=== PATIENT | male | born 1985 | race Caucasian/White ===

== ENCOUNTER 2017-10-03 23:28 | Inpatient (IN) | payer MEDICARE, OTHER ==
[~2017-10-03] VITALS: Ht 193 cm; Wt 112.0 kg
[~2017-10-03 23:28] MED LIST: CLON1TAB4 PO; GABA600T PO; LORA2TAB96 PO; OXYC20TA55 PO; OXYC30TA88 PO
[2017-10-04] MEDS ORDERED: ondansetron/PF 4mg/2ml inj IV ONE (01:00)
[2017-10-04] MEDS ORDERED: normal saline 1000ML IV soln IVB ONE (01:00)
[2017-10-04 02:05] LABS: BASOPHILS # (AUTO) 0.1 X10'3 (0-0.2); BASOPHILS % (AUTO) 0.5 % (0-1); EOSINOPHILS # (AUTO) 0.2 X10'3 (0-0.9); EOSINOPHILS % (AUTO) 1.1 % (0-6); HEMATOCRIT 48.6 % (42.0-52.0); HEMOGLOBIN 16.6 g/dl (14.0-17.9); LYMPHOCYTES # (AUTO) 3.9 X10'3 (1.1-4.8); LYMPHOCYTES % (AUTO) 26.9 % (21-51); MEAN CORPUSCULAR HEMOGLOBIN 33.8 PG (27.0-31.0); MEAN CORPUSCULAR HGB CONC 34.2 % (33.0-36.5); MEAN CORPUSCULAR VOLUME 98.9 FL (78-98); MEAN PLATELET VOLUME 8.5 FL (7.4-10.4); MONOCYTES # (AUTO) 0.8 X10'3 (0-0.9); MONOCYTES % (AUTO) 5.6 % (2-12); NEUTROPHILS # (AUTO) 9.6 X10'3 (1.8-7.7); NEUTROPHILS % (AUTO) 65.9 % (42-75); PLATELET COUNT 132 X10'3 (140-440); RED BLOOD COUNT 4.91 X10'6 (4.70-6.10); RED CELL DISTRIBUTION WIDTH 13.8 % (11.5-14.5); WHITE BLOOD COUNT 14.6 X10'3 (4.5-11.0)
[2017-10-04 02:06] LABS: ALANINE AMINOTRANSFERASE 47 U/L (12-78); ALBUMIN 3.4 G/DL (3.4-5.0); ALBUMIN/GLOBULIN RATIO 0.9 (1.1-1.5); ALKALINE PHOSPHATASE 122 IU/L (46-116); ANION GAP 14 (8-16); ASPARTATE AMINO TRANSFERASE 31 U/L (10-37); BILIRUBIN,TOTAL 0.3 MG/DL (0.1-1.0); BLOOD UREA NITROGEN 15 MG/DL (7-18); BUN/CREATININE RATIO 21.4 (5.4-32.0); CALCIUM 8.2 MG/DL (8.5-10.1); CHLORIDE 106 MMOL/L (99-107); GLUCOSE 110 MG/DL (70-104); LIPASE 1172 U/L (73-393); POTASSIUM 3.4 MMOL/L (3.5-5.1); SODIUM 143 MMOL/L (135-145); TOTAL CARBON DIOXIDE 23.1 MMOL/L (24-32); TOTAL PROTEIN 7.4 G/DL (6.4-8.2); TROPONIN I < 0.04 NG/ML (0.0-0.05); eGFR > 90 ML/MIN
[2017-10-04] MEDS ORDERED: normal saline 1000ml 1,000 ML IV ONE ×2 (02:10)
[2017-10-04] MEDS ORDERED: morphine 4 MG/ML inj SYRINge IV ONE (02:20)
[2017-10-04] MEDS ORDERED: LORazepam 2 mg/ml vial IV ONE ×3 (02:20→10:05)
[2017-10-04] MEDS ORDERED: magnesium 2GM in 50ml NS 50 ML IV ONE (02:48)
[2017-10-04] MEDS ORDERED: potassium 10mEq/100ml NS w/LIDOcaine (10mg/bag) IV ONE (02:50)
[2017-10-04 03:24] LABS: MAGNESIUM 1.9 MG/DL (1.5-2.4)
[2017-10-04] MEDS ORDERED: HYDROmorphone 1 mg/ml syringe IV ONE (05:40)
[2017-10-04 06:24] LABS: URINE AMPHETAMINE SCREEN NEGATIVE (Neg); URINE BARBITUATE SCREEN NEGATIVE (Neg); URINE BENZODIAZEPINES SCREEN NEGATIVE (Neg); URINE CANNABINOID SCREEN NEGATIVE (Neg); URINE COCAINE SCREEN NEGATIVE (Neg); URINE METHADONE SCREEN NEGATIVE (Neg); URINE OPIATE SCREEN POSITIVE (Neg); URINE PHENCYCLIDINE SCREEN NEGATIVE (Neg)
[2017-10-04] MEDS ORDERED: mag hydrox/Alum hydrox/simeth 30ml oral suspension PO PRN (09:05)
[2017-10-04] MEDS ORDERED: acetaminophen 325mg tablet PO PRN (09:05)
[2017-10-04] MEDS ORDERED: magnesium hydroxide 30ml (MOM) UD suspension PO PRN (09:05)
[2017-10-04] MEDS ORDERED: morphine 2 MG/ML inj. syringe IV PRN ×3 (09:05→17:51)
[2017-10-04] MEDS ORDERED: thiamine inj. 100 MG in normal saline 100ml IV soln 100 ML IV ONE (09:05)
[2017-10-04] MEDS: morphine 5 MG/ML injection IV PRN ×2 (09:48→14:08)
[2017-10-04] MEDS: normal saline 1000ml 1,000 ML IV SCH ×3 (09:48→22:24)
[2017-10-04] MEDS: LORazepam 2 mg/ml vial IV PRN ×5 (14:07→23:04)
[2017-10-04] MEDS: ondansetron/PF 4mg/2ml inj IV PRN ×2 (14:22→21:03)
[2017-10-04] MEDS ORDERED: nitroGLYCERIN 0.4mg SUBLingual tab SL PRN (15:35)
[2017-10-04] MEDS ORDERED: aspirin 325mg tablet PO ONE (15:35)
[2017-10-04] MEDS ORDERED: hydrALAZINE 20mg/ml inj. IV ONE (15:35)
[2017-10-04 16:15] VITALS: BP 138/90
[2017-10-04 19:00] VITALS: BP 139/86
[2017-10-04] MEDS: heparin, porcine 5000 units/ml vial SQ SCH (20:27)
[2017-10-04] MEDS ORDERED: CADD PCA waste documentation MC PRN (21:45)
[2017-10-04] MEDS ORDERED: naloxone 0.4 mg/ml inj IV PRN (21:45)
[2017-10-04] MEDS: HYDROmorphone/NS 1 mg/ml CADD 50 ML IV SCH (22:28)
[2017-10-05] VITALS: BP 153/85
[2017-10-05] MEDS: HYDROmorphone/NS 1 mg/ml CADD 50 ML IV SCH ×12 (01:00→23:00)
[2017-10-05] MEDS: LORazepam 2 mg/ml vial IV PRN ×6 (01:05→22:03)
[2017-10-05] MEDS: normal saline 1000ml 1,000 ML IV SCH ×3 (01:05→18:40)
[2017-10-05 06:25] LABS: BASOPHILS % (AUTO) 0.6 % (0-1); EOSINOPHILS # (AUTO) 0.1 X10'3 (0-0.9); EOSINOPHILS % (AUTO) 2.1 % (0-6); HEMATOCRIT 41.8 % (42.0-52.0); HEMOGLOBIN 14.7 g/dl (14.0-17.9); LYMPHOCYTES # (AUTO) 2.5 X10'3 (1.1-4.8); MEAN CORPUSCULAR HEMOGLOBIN 34.6 PG (27.0-31.0); MEAN CORPUSCULAR HGB CONC 35.2 % (33.0-36.5); MEAN CORPUSCULAR VOLUME 98.5 FL (78-98); MEAN PLATELET VOLUME 8.1 FL (7.4-10.4); MONOCYTES # (AUTO) 0.5 X10'3 (0-0.9); MONOCYTES % (AUTO) 8.1 % (2-12); NEUTROPHILS # (AUTO) 3.5 X10'3 (1.8-7.7); NEUTROPHILS % (AUTO) 52.2 % (42-75); PLATELET COUNT 99 X10'3 (140-440); RED BLOOD COUNT 4.25 X10'6 (4.70-6.10); RED CELL DISTRIBUTION WIDTH 13.3 % (11.5-14.5); WHITE BLOOD COUNT 6.7 X10'3 (4.5-11.0)
[2017-10-05 07:00] VITALS: BP 136/96
[2017-10-05 07:23] LABS: ALBUMIN 2.9 G/DL (3.4-5.0); ANION GAP 8 (8-16); BLOOD UREA NITROGEN 8 MG/DL (7-18); BUN/CREATININE RATIO 11.4 (5.4-32.0); CALCIUM 8.3 MG/DL (8.5-10.1); CHLORIDE 103 MMOL/L (99-107); GLUCOSE 87 MG/DL (70-104); LIPASE 269 U/L (73-393); POTASSIUM 3.8 MMOL/L (3.5-5.1); SODIUM 138 MMOL/L (135-145); TOTAL CARBON DIOXIDE 27.3 MMOL/L (24-32); eGFR > 90 ML/MIN
[2017-10-05] MEDS: heparin, porcine 5000 units/ml vial SQ SCH ×2 (08:00→20:00)
[2017-10-05] MEDS: nicotine 14mg patch - 24hr TD SCH (08:14)
[2017-10-05] MEDS: folic acid inj. 2 MG, thiamine inj. 100 MG, MVI, adult No.4 with vit. K 10 ML in dextro... IV SCH ×4 (08:15)
[2017-10-05 11:00] VITALS: BP 135/87
[2017-10-05] MEDS: gabapentin 300mg capsule PO SCH ×2 (13:00→21:31)
[2017-10-05 19:00] VITALS: BP 138/86
[2017-10-06] VITALS: BP 124/91
[2017-10-06] MEDS: LORazepam 2 mg/ml vial IV PRN ×4 (00:21→08:15)
[2017-10-06] MEDS: HYDROmorphone/NS 1 mg/ml CADD 50 ML IV SCH ×12 (01:00→23:00)
[2017-10-06] MEDS: normal saline 1000ml 1,000 ML IV SCH ×3 (01:46→21:39)
[2017-10-06 06:50] LABS: BASOPHILS % (AUTO) 0.5 % (0-1); EOSINOPHILS # (AUTO) 0.2 X10'3 (0-0.9); EOSINOPHILS % (AUTO) 2.9 % (0-6); HEMATOCRIT 40.9 % (42.0-52.0); HEMOGLOBIN 14.1 g/dl (14.0-17.9); LYMPHOCYTES # (AUTO) 2.3 X10'3 (1.1-4.8); LYMPHOCYTES % (AUTO) 36.8 % (21-51); MEAN CORPUSCULAR HEMOGLOBIN 34.7 PG (27.0-31.0); MEAN CORPUSCULAR HGB CONC 34.4 % (33.0-36.5); MEAN CORPUSCULAR VOLUME 100.7 FL (78-98); MEAN PLATELET VOLUME 8.2 FL (7.4-10.4); MONOCYTES # (AUTO) 0.5 X10'3 (0-0.9); NEUTROPHILS # (AUTO) 3.3 X10'3 (1.8-7.7); NEUTROPHILS % (AUTO) 51.8 % (42-75); PLATELET COUNT 97 X10'3 (140-440); RED BLOOD COUNT 4.06 X10'6 (4.70-6.10); RED CELL DISTRIBUTION WIDTH 13.4 % (11.5-14.5); WHITE BLOOD COUNT 6.3 X10'3 (4.5-11.0)
[2017-10-06 07:08] LABS: ALBUMIN 2.7 G/DL (3.4-5.0); ANION GAP 6 (8-16); BLOOD UREA NITROGEN 6 MG/DL (7-18); CALCIUM 8.6 MG/DL (8.5-10.1); CHLORIDE 104 MMOL/L (99-107); GLUCOSE 109 MG/DL (70-104); LIPASE 180 U/L (73-393); POTASSIUM 3.7 MMOL/L (3.5-5.1); SODIUM 139 MMOL/L (135-145); TOTAL CARBON DIOXIDE 29.3 MMOL/L (24-32); eGFR > 90 ML/MIN
[2017-10-06 07:27] VITALS: BP 136/88
[2017-10-06] MEDS: heparin, porcine 5000 units/ml vial SQ SCH ×2 (08:00→08:25)
[2017-10-06] MEDS: nicotine 14mg patch - 24hr TD SCH (08:11)
[2017-10-06] MEDS: gabapentin 300mg capsule PO SCH ×3 (08:11→21:35)
[2017-10-06] MEDS: folic acid inj. 2 MG, thiamine inj. 100 MG, MVI, adult No.4 with vit. K 10 ML in dextro... IV SCH ×4 (08:15)
[2017-10-06 12:00] VITALS: BP 145/66
[2017-10-06] MEDS: LORazepam 1 MG tablet PO PRN ×3 (13:21→21:35)
[2017-10-06 19:20] VITALS: BP 138/78
[2017-10-06 23:00] VITALS: BP 122/84
[2017-10-07] MEDS: HYDROmorphone/NS 1 mg/ml CADD 50 ML IV SCH ×5 (01:00→09:00)
[2017-10-07] MEDS: LORazepam 1 MG tablet PO PRN ×5 (03:35→21:24)
[2017-10-07 06:12] LABS: BASOPHILS % (AUTO) 0.6 % (0-1); EOSINOPHILS # (AUTO) 0.1 X10'3 (0-0.9); EOSINOPHILS % (AUTO) 2.4 % (0-6); HEMATOCRIT 41.2 % (42.0-52.0); HEMOGLOBIN 14.3 g/dl (14.0-17.9); LYMPHOCYTES # (AUTO) 2.3 X10'3 (1.1-4.8); LYMPHOCYTES % (AUTO) 39.9 % (21-51); MEAN CORPUSCULAR HEMOGLOBIN 34.8 PG (27.0-31.0); MEAN CORPUSCULAR HGB CONC 34.7 % (33.0-36.5); MEAN CORPUSCULAR VOLUME 100.2 FL (78-98); MEAN PLATELET VOLUME 8.3 FL (7.4-10.4); MONOCYTES # (AUTO) 0.5 X10'3 (0-0.9); MONOCYTES % (AUTO) 9.3 % (2-12); NEUTROPHILS # (AUTO) 2.8 X10'3 (1.8-7.7); NEUTROPHILS % (AUTO) 47.8 % (42-75); PLATELET COUNT 92 X10'3 (140-440); RED BLOOD COUNT 4.11 X10'6 (4.70-6.10); RED CELL DISTRIBUTION WIDTH 13.5 % (11.5-14.5); WHITE BLOOD COUNT 5.8 X10'3 (4.5-11.0)
[2017-10-07 06:33] LABS: ALBUMIN 2.7 G/DL (3.4-5.0); ANION GAP 5 (8-16); BLOOD UREA NITROGEN 7 MG/DL (7-18); CALCIUM 8.8 MG/DL (8.5-10.1); CHLORIDE 107 MMOL/L (99-107); GLUCOSE 109 MG/DL (70-104); LIPASE 254 U/L (73-393); POTASSIUM 4.6 MMOL/L (3.5-5.1); SODIUM 143 MMOL/L (135-145); TOTAL CARBON DIOXIDE 30.6 MMOL/L (24-32); eGFR 86 ML/MIN
[2017-10-07 06:59] VITALS: BP 135/89
[2017-10-07] MEDS: multivitamins, therapeutics tablet PO SCH (07:45)
[2017-10-07] MEDS: folic acid 1mg tablet PO SCH (07:46)
[2017-10-07] MEDS: gabapentin 300mg capsule PO SCH ×3 (07:46→21:23)
[2017-10-07] MEDS: thiamine 100mg tablet PO SCH (07:46)
[2017-10-07] MEDS: nicotine 14mg patch - 24hr TD SCH (07:47)
[2017-10-07] MEDS: heparin, porcine 5000 units/ml vial SQ SCH ×2 (07:48→20:00)
[2017-10-07] MEDS: normal saline 1000ml 1,000 ML IV SCH (10:28)
[2017-10-07 11:00] VITALS: BP 130/80
[2017-10-07] MEDS ORDERED: morphine 2 MG/ML inj. syringe IV PRN (11:10)
[2017-10-07] MEDS: oxyCODONE IR 5mg (immed. release) tablet PO PRN ×3 (12:47→21:24)
[2017-10-07 20:00] VITALS: BP 112/80
[2017-10-07 23:00] VITALS: BP 114/74
[2017-10-08] MEDS: LORazepam 1 MG tablet PO PRN ×6 (01:31→23:52)
[2017-10-08] MEDS: oxyCODONE IR 5mg (immed. release) tablet PO PRN ×6 (01:31→23:52)
[2017-10-08 06:54] VITALS: BP 124/79
[2017-10-08] MEDS: nicotine 14mg patch - 24hr TD SCH (07:50)
[2017-10-08] MEDS: folic acid 1mg tablet PO SCH (07:50)
[2017-10-08] MEDS: gabapentin 300mg capsule PO SCH ×3 (07:50→20:36)
[2017-10-08] MEDS: multivitamins, therapeutics tablet PO SCH (07:50)
[2017-10-08] MEDS: thiamine 100mg tablet PO SCH (07:50)
[2017-10-08] MEDS: heparin, porcine 5000 units/ml vial SQ SCH ×2 (08:00→20:00)
[2017-10-08 11:00] VITALS: BP 114/75
[2017-10-08 18:00] VITALS: BP 148/89
[2017-10-08 23:00] VITALS: BP 107/65
[2017-10-09] MEDS: oxyCODONE IR 5mg (immed. release) tablet PO PRN ×5 (03:52→20:44)
[2017-10-09] MEDS: LORazepam 1 MG tablet PO PRN ×5 (03:52→20:43)
[2017-10-09] MEDS: heparin, porcine 5000 units/ml vial SQ SCH ×2 (08:00→20:00)
[2017-10-09] MEDS: nicotine 14mg patch - 24hr TD SCH (08:04)
[2017-10-09] MEDS: multivitamins, therapeutics tablet PO SCH (08:05)
[2017-10-09] MEDS: gabapentin 300mg capsule PO SCH ×3 (08:05→20:44)
[2017-10-09] MEDS: folic acid 1mg tablet PO SCH (08:05)
[2017-10-09] MEDS: thiamine 100mg tablet PO SCH (08:06)
[2017-10-09 08:13] VITALS: BP 114/73
[2017-10-09 12:00] VITALS: BP 121/88
[2017-10-09] MEDS ORDERED: LIDOcaine 1% 30ml vial SQ STA (12:15)
[2017-10-09] MEDS ORDERED: triamcinolone acetonide 40mg/ml inj IM ONE (12:15)
[2017-10-09 18:00] VITALS: BP 138/82
[2017-10-09] MEDS ORDERED: diphenhydrAMINE 25mg capsule PO ONE (20:00)
[2017-10-10] VITALS: BP 120/79
[2017-10-10] MEDS: LORazepam 1 MG tablet PO PRN ×6 (00:41→21:24)
[2017-10-10] MEDS: oxyCODONE IR 5mg (immed. release) tablet PO PRN ×6 (00:41→21:25)
[2017-10-10 06:30] VITALS: BP 133/62
[2017-10-10] MEDS: gabapentin 300mg capsule PO SCH ×3 (07:32→20:40)
[2017-10-10] MEDS: thiamine 100mg tablet PO SCH (07:32)
[2017-10-10] MEDS: folic acid 1mg tablet PO SCH (07:32)
[2017-10-10] MEDS: multivitamins, therapeutics tablet PO SCH (07:32)
[2017-10-10] MEDS: heparin, porcine 5000 units/ml vial SQ SCH ×3 (07:32→20:00)
[2017-10-10 11:18] VITALS: BP 111/71
[2017-10-10] MEDS ORDERED: HYDR50CA PO (14:24)
[2017-10-10] MEDS ORDERED: NAPR250T4 PO (14:24)
[2017-10-10 19:30] VITALS: BP 133/81
[2017-10-11] VITALS: BP 127/76
[2017-10-11] MEDS: LORazepam 1 MG tablet PO PRN ×4 (01:14→13:30)
[2017-10-11] MEDS: oxyCODONE IR 5mg (immed. release) tablet PO PRN ×4 (01:14→13:31)
[2017-10-11 07:00] VITALS: BP 123/84
[2017-10-11] MEDS: heparin, porcine 5000 units/ml vial SQ SCH (08:00)
[2017-10-11] MEDS: multivitamins, therapeutics tablet PO SCH (08:53)
[2017-10-11] MEDS: gabapentin 300mg capsule PO SCH ×2 (08:53→13:04)
[2017-10-11] MEDS: thiamine 100mg tablet PO SCH (08:53)
[2017-10-11] MEDS: folic acid 1mg tablet PO SCH (08:54)
[2017-10-11 11:00] VITALS: BP 117/74
== END 2017-10-11 13:58 | DRG 896 ==
LOC: ER 23:28 → ED HOLD 10-04 09:04 → EDBEDREQ 10-04 15:40 → MED 3N 10-04 16:09
PROVIDERS: ADMIT Family Medicine; ATTEND Family Medicine
DX: F10.229 Alcohol dependence with intoxication, unspecified (principal); K85.20 Alcohol induced acute pancreatitis without necrosis or infection; R65.10 Systemic inflammatory response syndrome (SIRS) of non-infectious origin without acute organ dysfunction; F10.239 Alcohol dependence with withdrawal, unspecified; M87.022 Idiopathic aseptic necrosis of left humerus; K86.1 Other chronic pancreatitis; Z89.612 Acquired absence of left leg above knee; E87.6 Hypokalemia; Y90.0 Blood alcohol level of less than 20 mg/100 ml; G40.909 Epilepsy, unspecified, not intractable, without status epilepticus; G89.29 Other chronic pain; M25.512 Pain in left shoulder; Z72.0 Tobacco use; Z90.49 Acquired absence of other specified parts of digestive tract; Z88.1 Allergy status to other antibiotic agents; Z88.2 Allergy status to sulfonamides; Z88.8 Allergy status to other drugs, medicaments and biological substances; Z86.718 Personal history of other venous thrombosis and embolism; Z71.6 Tobacco abuse counseling
CPT/HCPCS: 36415; 73030; 73221; 80048; 80053; 80305; 80320; 83690; 83735; 84484; 85025; 87070; 93005; 97161; 97530; 99285; A4565; A6257; J1170; J1644; J2060; J2270; J2405; J3301; J3411; J3475; J3480; J3490; J7030; J7060; Q0163

== ENCOUNTER 2017-10-21 06:48 | Inpatient (IN) | payer MEDICARE, MEDICAID ==
[2017-10-17 15:58] LABS: BASOPHILS # (AUTO) 0.1 X10'3 (0-0.2); BASOPHILS % (AUTO) 0.6 % (0-1); EOSINOPHILS # (AUTO) 0.2 X10'3 (0-0.9); EOSINOPHILS % (AUTO) 2.8 % (0-6); LYMPHOCYTES # (AUTO) 3.4 X10'3 (1.1-4.8); LYMPHOCYTES % (AUTO) 38.3 % (21-51); MEAN CORPUSCULAR HEMOGLOBIN 34.3 PG (27.0-31.0); MEAN CORPUSCULAR HGB CONC 34.6 % (33.0-36.5); MEAN CORPUSCULAR VOLUME 99.2 FL (78-98); MEAN PLATELET VOLUME 6.9 FL (7.4-10.4); MONOCYTES # (AUTO) 0.7 X10'3 (0-0.9); MONOCYTES % (AUTO) 7.8 % (2-12); NEUTROPHILS # (AUTO) 4.5 X10'3 (1.8-7.7); NEUTROPHILS % (AUTO) 50.5 % (42-75); PRE OP HEMATOCRIT 44.6 % (42.0-52.0); PRE OP HEMOGLOBIN 15.4 g/dL (14.0-17.9); PRE OP PLATELET COUNT 228 X10'3 (140-440); RED CELL DISTRIBUTION WIDTH 13.7 % (11.5-14.5)
[2017-10-17 16:08] LABS: PRE OP INR 0.9 INR; PRE OP PROTIME 9.6 SECONDS (9.0-12.0)
[2017-10-17 16:12] LABS: ALBUMIN 3.8 G/DL (3.4-5.0); ALKALINE PHOSPHATASE 117 IU/L (46-116); BLOOD UREA NITROGEN 15 MG/DL (7-18); CHLORIDE 107 MMOL/L (99-107); CREATININE 0.75 MG/DL (0.60-1.10); LIPASE 432 U/L (73-393); PRE OP ALT 66 U/L (30-65); PRE OP ANION GAP 8 (8-16); PRE OP AST 21 U/L (10-37); PRE OP BILIRUB, TOTAL 0.3 MG/DL (0.0-1.0); PRE OP GLUCOSE 88 MG/DL (70-104); PRE OP POTASSIUM 3.9 MMOL/L (3.4-5.1); PRE OP SODIUM 144 MMOL/L (135-145); TOTAL CARBON DIOXIDE 29.1 MMOL/L (24-32); TOTAL PROTEIN 7.6 G/DL (6.4-8.2); eGFR > 90 ML/MIN
[2017-10-21] VITALS (18 sets, daily range): BP systolic 106–155; BP diastolic 47–120
[~2017-10-21] VITALS: Ht 193 cm; Wt 92.5 kg
[~2017-10-21 06:48] MED LIST changes: -GABA600T PO; +HYDR-565 PO; -LORA2TAB96 PO; -OXYC20TA55 PO; -OXYC30TA88 PO; +PREG300C PO; +SERT100T10 PO; +famotidine 20mg tablet PO ONE; +ringers solution, lacted 1,000 ML IV SCH; +tranexamic acid inj. 900 MG in normal saline 100ml IV soln 91 ML IV ONE
[2017-10-21] MEDS ORDERED: DAPTOmycin 500mg inj IV ONE ×2 (07:38→13:22)
[2017-10-21] MEDS ORDERED: tranexamic acid inj. 907 MG in normal saline 100ml IV soln 90.93 ML IV ONE ×4 (07:45)
[2017-10-21] MEDS ORDERED: LIDOcaine 1% (10mg/ml) 2ml vial ONE (08:09)
[2017-10-21] MEDS ORDERED: tranexamic acid inj. 900 MG in normal saline 100ml IV soln 91 ML IV ONE (09:30)
[2017-10-21] MEDS ORDERED: ketorolac trometh. 30mg/ml inj. ONE (10:03)
[2017-10-21] MEDS ORDERED: ROPIVAcaine 0.5% (5mg/ml) 30ml vial ONE ×2 (10:04→14:17)
[2017-10-21] MEDS ORDERED: vancomycin 1,000mg inj ONE (10:04)
[2017-10-21] MEDS ORDERED: sevoflurane 250ml liquid IH ONE (12:25)
[2017-10-21] MEDS ORDERED: fentaNYL/PF 50MCG/1 ML 2ML syringe ONE ×3 (12:30→14:10)
[2017-10-21] MEDS ORDERED: midazolam 2 mg/2 ml injection ONE (12:31)
[2017-10-21] MEDS ORDERED: propofol inj 20 ML IV ONE (12:47)
[2017-10-21] MEDS ORDERED: LIDOcaine 2% (20mg/ml) 5ml vial ONE (12:47)
[2017-10-21] MEDS ORDERED: dexamethasone sod phosphate 4mg/ml inj. ONE (13:12)
[2017-10-21] MEDS ORDERED: ringers solution, lacted 1,000 ML IV SCH (13:48)
[2017-10-21] MEDS ORDERED: meperidine/PF 50mg/ml syringe IV PRN ×2 (13:50)
[2017-10-21] MEDS ORDERED: morphine 2 MG/ML inj. syringe IV PRN ×2 (13:50)
[2017-10-21] MEDS ORDERED: proCHLORperazine 10 MG/2 ml inj IV PRN (13:50)
[2017-10-21] MEDS ORDERED: ondansetron/PF 4mg/2ml inj IV PRN ×2 (13:50→14:50)
[2017-10-21] MEDS ORDERED: morphine 10mg/ml inj. ONE (14:11)
[2017-10-21] MEDS ORDERED: diphenhydrAMINE 25mg capsule PO PRN ×2 (14:50)
[2017-10-21] MEDS ORDERED: HYDROmorphone 1 mg/ml syringe IV PRN ×2 (14:50)
[2017-10-21] MEDS ORDERED: bisacodyl 10mg suppository rectal RC PRN (14:50)
[2017-10-21] MEDS ORDERED: magnesium hydroxide 30ml (MOM) UD suspension PO PRN (14:50)
[2017-10-21] MEDS ORDERED: oxyCODONE IR 5mg (immed. release) tablet PO PRN ×5 (14:50→19:30)
[2017-10-21] MEDS ORDERED: acetaminophen 325mg tablet PO PRN (14:50)
[2017-10-21] MEDS ORDERED: HYDROcodone/acetaminophen 10/325mg tab PO PRN (14:50)
[2017-10-21] MEDS: meperidine/PF 50mg/ml syringe IV PRN ×4 (15:05→15:35)
[2017-10-21] MEDS ORDERED: ondansetron/PF 4mg/2ml inj ONE (15:09)
[2017-10-21] MEDS: clonazePAM 1mg tablet PO SCH ×2 (16:42→20:10)
[2017-10-21] MEDS ORDERED: HYDROmorphone inj. 0.5 MG/0.5 ML DISP.SYRIN ONE ×2 (17:35→17:36)
[2017-10-21] MEDS: potassium cl 20mEq in 1/2 NS 1,000 ML IV SCH (17:42)
[2017-10-21] MEDS ORDERED: TRANEXAMIC ACID IV ONE (18:27)
[2017-10-21] MEDS ORDERED: NORMAL SALINE IV ONE (18:27)
[2017-10-21] MEDS: morphine 2 MG/ML inj. syringe IV PRN (20:09)
[2017-10-21] MEDS: pregabalin 75mg capsule PO SCH (20:10)
[2017-10-21] MEDS: sennosides 8.6mg tablet PO SCH (20:11)
[2017-10-21] MEDS: acetaminophen 325mg tablet PO SCH (20:12)
[2017-10-21] MEDS: oxyCODONE IR 5mg (immed. release) tablet PO PRN (21:40)
[2017-10-22] MEDS: morphine 2 MG/ML inj. syringe IV PRN ×6 (00:18→21:28)
[2017-10-22 02:00] VITALS: BP 116/81
[2017-10-22] MEDS: acetaminophen 325mg tablet PO SCH ×4 (02:26→21:27)
[2017-10-22] MEDS: oxyCODONE IR 5mg (immed. release) tablet PO PRN ×6 (02:27→23:14)
[2017-10-22] MEDS: potassium cl 20mEq in 1/2 NS 1,000 ML IV SCH (02:28)
[2017-10-22 06:00] VITALS: BP 119/73
[2017-10-22 06:27] LABS: ANION GAP 6 (8-16); CHLORIDE 107 MMOL/L (99-107); SODIUM 140 MMOL/L (135-145); TOTAL CARBON DIOXIDE 26.8 MMOL/L (24-32)
[2017-10-22 06:36] LABS: BASOPHILS % (AUTO) 0.1 % (0-1); EOSINOPHILS % (AUTO) 0 % (0-6); HEMATOCRIT 37.6 % (42.0-52.0); HEMOGLOBIN 13.5 g/dl (14.0-17.9); LYMPHOCYTES # (AUTO) 2.9 X10'3 (1.1-4.8); MEAN CORPUSCULAR HEMOGLOBIN 34.7 PG (27.0-31.0); MEAN CORPUSCULAR HGB CONC 35.8 % (33.0-36.5); MEAN PLATELET VOLUME 7.7 FL (7.4-10.4); NEUTROPHILS # (AUTO) 10.4 X10'3 (1.8-7.7); NEUTROPHILS % (AUTO) 72.9 % (42-75); PLATELET COUNT 211 X10'3 (140-440); RED BLOOD COUNT 3.88 X10'6 (4.70-6.10); RED CELL DISTRIBUTION WIDTH 13.9 % (11.5-14.5); WHITE BLOOD COUNT 14.3 X10'3 (4.5-11.0)
[2017-10-22] MEDS: pregabalin 75mg capsule PO SCH ×2 (07:05→21:28)
[2017-10-22] MEDS: clonazePAM 1mg tablet PO SCH ×4 (07:05→21:27)
[2017-10-22] MEDS: sertraline 50mg tablet PO SCH (07:06)
[2017-10-22] MEDS: aspirin 325mg tablet PO SCH (07:48)
[2017-10-22] MEDS ORDERED: DAPTOmycin inj. 500 MG in normal saline 100ml IV soln 100 ML IV SCH (08:00)
[2017-10-22 14:00] VITALS: BP 128/83
[2017-10-22 18:58] VITALS: BP 139/88
[2017-10-22] MEDS: sennosides 8.6mg tablet PO SCH (21:00)
[2017-10-22 22:39] VITALS: BP 126/79
[2017-10-23] MEDS: morphine 2 MG/ML inj. syringe IV PRN ×6 (01:38→23:07)
[2017-10-23] MEDS: acetaminophen 325mg tablet PO SCH ×3 (01:44→17:29)
[2017-10-23 02:00] VITALS: BP 131/100
[2017-10-23] MEDS: oxyCODONE IR 5mg (immed. release) tablet PO PRN ×5 (03:43→21:05)
[2017-10-23 05:00] VITALS: BP 109/80
[2017-10-23 06:23] LABS: BASOPHILS # (AUTO) 0.1 X10'3 (0-0.2); BASOPHILS % (AUTO) 0.6 % (0-1); EOSINOPHILS # (AUTO) 0.2 X10'3 (0-0.9); EOSINOPHILS % (AUTO) 2.4 % (0-6); HEMATOCRIT 37.8 % (42.0-52.0); HEMOGLOBIN 13.2 g/dl (14.0-17.9); LYMPHOCYTES # (AUTO) 2.9 X10'3 (1.1-4.8); LYMPHOCYTES % (AUTO) 31.9 % (21-51); MEAN CORPUSCULAR HEMOGLOBIN 34.4 PG (27.0-31.0); MEAN CORPUSCULAR HGB CONC 34.9 % (33.0-36.5); MEAN CORPUSCULAR VOLUME 98.6 FL (78-98); MEAN PLATELET VOLUME 7.5 FL (7.4-10.4); MONOCYTES # (AUTO) 0.8 X10'3 (0-0.9); MONOCYTES % (AUTO) 9.1 % (2-12); NEUTROPHILS # (AUTO) 5.1 X10'3 (1.8-7.7); PLATELET COUNT 220 X10'3 (140-440); RED BLOOD COUNT 3.83 X10'6 (4.70-6.10); RED CELL DISTRIBUTION WIDTH 13.8 % (11.5-14.5); WHITE BLOOD COUNT 9.1 X10'3 (4.5-11.0)
[2017-10-23] MEDS ORDERED: ketorolac trometh. 30mg/ml inj. IV SCH (08:00)
[2017-10-23] MEDS: sertraline 50mg tablet PO SCH (08:24)
[2017-10-23] MEDS: clonazePAM 1mg tablet PO SCH ×4 (08:24→21:05)
[2017-10-23] MEDS: aspirin 325mg tablet PO SCH (08:25)
[2017-10-23] MEDS: pregabalin 75mg capsule PO SCH ×2 (08:26→21:05)
[2017-10-23 11:30] VITALS: BP 133/80
[2017-10-23] MEDS ORDERED: acetaminophen 325mg tablet PO PRN (14:50)
[2017-10-23 18:00] VITALS: BP 126/85
[2017-10-23] MEDS: sennosides 8.6mg tablet PO SCH (21:00)
[2017-10-23 22:00] VITALS: BP 124/78
[2017-10-24] MEDS: oxyCODONE IR 5mg (immed. release) tablet PO PRN ×4 (00:50→13:33)
[2017-10-24] MEDS: morphine 2 MG/ML inj. syringe IV PRN ×3 (04:07→12:36)
[2017-10-24 06:31] LABS: BASOPHILS % (AUTO) 0.3 % (0-1); EOSINOPHILS # (AUTO) 0.4 X10'3 (0-0.9); EOSINOPHILS % (AUTO) 4.5 % (0-6); HEMATOCRIT 36.6 % (42.0-52.0); HEMOGLOBIN 12.8 g/dl (14.0-17.9); LYMPHOCYTES # (AUTO) 3.1 X10'3 (1.1-4.8); LYMPHOCYTES % (AUTO) 32.1 % (21-51); MEAN CORPUSCULAR HEMOGLOBIN 34.3 PG (27.0-31.0); MEAN CORPUSCULAR HGB CONC 34.8 % (33.0-36.5); MEAN CORPUSCULAR VOLUME 98.6 FL (78-98); MEAN PLATELET VOLUME 7.8 FL (7.4-10.4); MONOCYTES # (AUTO) 1.1 X10'3 (0-0.9); MONOCYTES % (AUTO) 11.3 % (2-12); NEUTROPHILS % (AUTO) 51.8 % (42-75); PLATELET COUNT 205 X10'3 (140-440); RED BLOOD COUNT 3.72 X10'6 (4.70-6.10); RED CELL DISTRIBUTION WIDTH 13.6 % (11.5-14.5); WHITE BLOOD COUNT 9.7 X10'3 (4.5-11.0)
[2017-10-24 06:54] VITALS: BP 107/68
[2017-10-24] MEDS: aspirin 325mg tablet PO SCH (07:12)
[2017-10-24] MEDS: clonazePAM 1mg tablet PO SCH ×2 (07:13→12:35)
[2017-10-24] MEDS: pregabalin 75mg capsule PO SCH (07:13)
[2017-10-24] MEDS: sertraline 50mg tablet PO SCH (07:13)
== END 2017-10-24 15:47 | DRG 483 ==
LOC: PAS IN 06:48 → EDSTATUS 11:00 → ORTHO 4S 16:15
PROVIDERS: ADMIT Orthopaedic Surgery; ATTEND Orthopaedic Surgery
PROC: 0LS40ZZ Reposition Left Upper Arm Tendon, Open Approach (ICD-10-PCS; 2017-10-21)
PROC: 0RRK0JZ Replacement of Left Shoulder Joint with Synthetic Substitute, Open Approach (ICD-10-PCS; principal; 2017-10-21 12:20)
DX: M87.022 Idiopathic aseptic necrosis of left humerus (principal); K85.90 Acute pancreatitis without necrosis or infection, unspecified; D62 Acute posthemorrhagic anemia; Z89.612 Acquired absence of left leg above knee; F11.20 Opioid dependence, uncomplicated; G54.6 Phantom limb syndrome with pain; M75.22 Bicipital tendinitis, left shoulder; I10 Essential (primary) hypertension; I25.10 Atherosclerotic heart disease of native coronary artery without angina pectoris; F32.9 Major depressive disorder, single episode, unspecified; F41.9 Anxiety disorder, unspecified; G89.29 Other chronic pain; J45.909 Unspecified asthma, uncomplicated; M65.812 Other synovitis and tenosynovitis, left shoulder; Z96.653 Presence of artificial knee joint, bilateral; Z88.6 Allergy status to analgesic agent; Z79.899 Other long term (current) drug therapy
CPT/HCPCS: 36415; 80051; 80053; 83690; 85025; 85610; 85730; 87070; 93005; 97110; 97161; 97530; A4565; A7000; C1713; C1776; J0878; J1100; J1170; J1885; J2001; J2175; J2250; J2270; J2405; J2704; J2795; J3010; J3370; J3490; J7030; J7120

== ENCOUNTER 2017-10-26 17:59 | Inpatient (IN) | payer MEDICARE, MEDICAID ==
[~2017-10-26] VITALS: Ht 193 cm; Wt 99.0 kg
[~2017-10-26 17:59] MED LIST changes: +epiNEPHrine 0.1mg/ml 10ml syringe ONE; +epiNEPHrine 1 mg/ml 30ml MDV ONE; +etomidate 2mg/ml inj. ONE; -famotidine 20mg tablet PO ONE; -ringers solution, lacted 1,000 ML IV SCH; +rocuronium 10mg/ml inj IV ONE; +sod chloride 0.9% 10ml flush syringe IV ONE; -tranexamic acid inj. 900 MG in normal saline 100ml IV soln 91 ML IV ONE
[2017-10-26] MEDS ORDERED: MIDAZolam 5mg/ml 2ml vial IV ONE (18:10)
[2017-10-26] MEDS ORDERED: normal saline 1000ML IV soln IV ONE (18:20)
[2017-10-26] MEDS ORDERED: diphenhydrAMINE 50 mg/ml inj IV ONE (18:30)
[2017-10-26] MEDS ORDERED: famotidine/PF 10 mg/ml inj IV ONE (18:30)
[2017-10-26] MEDS ORDERED: methylPREDNISolone sod succ 125mg/2ml vial IV ONE (18:30)
[2017-10-26 18:34] LABS: BASOPHILS # (AUTO) 0.1 X10'3 (0-0.2); BASOPHILS % (AUTO) 0.4 % (0-1); EOSINOPHILS # (AUTO) 0.9 X10'3 (0-0.9); EOSINOPHILS % (AUTO) 5.3 % (0-6); HEMATOCRIT 42.9 % (42.0-52.0); HEMOGLOBIN 14.5 g/dl (14.0-17.9); LYMPHOCYTES % (AUTO) 41.4 % (21-51); MEAN CORPUSCULAR HEMOGLOBIN 33.8 PG (27.0-31.0); MEAN CORPUSCULAR HGB CONC 33.7 % (33.0-36.5); MEAN CORPUSCULAR VOLUME 100.2 FL (78-98); MONOCYTES # (AUTO) 1.2 X10'3 (0-0.9); MONOCYTES % (AUTO) 7.2 % (2-12); NEUTROPHILS # (AUTO) 7.7 X10'3 (1.8-7.7); NEUTROPHILS % (AUTO) 45.7 % (42-75); PLATELET COUNT 296 X10'3 (140-440); RED BLOOD COUNT 4.28 X10'6 (4.70-6.10); RED CELL DISTRIBUTION WIDTH 13.7 % (11.5-14.5); WHITE BLOOD COUNT 16.9 X10'3 (4.5-11.0)
[2017-10-26 18:46] LABS: INR 0.9 INR; PARTIAL THROMBOPLASTIN TIME 24 SECONDS (22-32); PROTHROMBIN TIME 9.1 SECONDS (9.0-12.0)
[2017-10-26] MEDS ORDERED: midazolam 2 mg/2 ml injection ONE (18:46)
[2017-10-26 19:05] LABS: ABG BASE EXCESS -2.4 mmol/L (-2.0-3.0); ABG HCO3 24.9 mmol/L (22.0-26.0); ABG OXYGEN SATURATION 99.5 % (95-98); ABG PCO2 (T) 53.9 mmHg (35.0-48.0); ABG PH (T) 7.284 (7.350-7.450); ALLEN'S TEST Positive; FCOHb 0.9 % (0.5-1.5); FMetHb 0.4 % (0.3-1.12); FO2Hb 98.2 % (94-100); MINUTE VOLUME 7 L/min; PATIENT TEMPERATURE 37.2; PEEP 5 cm H2O; RESPIRATORY RATE 12 b/min; RESPIRATORY RATE (OBSERVED) 12 b/min; TIDAL VOLUME 500 mL; TOTAL HEMOGLOBIN 13.5 G/dl (14.0-18.0)
[2017-10-26] MEDS: midazolam 100mg in NS 100ml 100 ML IV PRN (19:08)
[2017-10-26] MEDS ORDERED: propofol 1000mg/100ml bottle 100 ML IV ONE (19:26)
[2017-10-26] MEDS ORDERED: magnesium Cl slow-release 64mg tablet PO PRN (20:10)
[2017-10-26] MEDS ORDERED: magnesium 4gm in 100ml NS 100 ML IV PRN (20:10)
[2017-10-26] MEDS ORDERED: potassium Cl 20 mEq SR tablet PO PRN ×2 (20:10)
[2017-10-26] MEDS ORDERED: albuterol 2.5 MG/3 ML nebule NEB PRN (20:10)
[2017-10-26] MEDS ORDERED: magnesium 2GM in 50ml NS 50 ML IV PRN (20:10)
[2017-10-26] MEDS ORDERED: midazolam 100mg in NS 100ml 100 ML IV PRN (20:14)
[2017-10-26] MEDS ORDERED: fentaNYL/PF 50MCG/1 ML 2ML syringe IV PRN (20:15)
[2017-10-26 20:17] LABS: ALANINE AMINOTRANSFERASE 33 U/L (12-78); ALBUMIN 2.6 G/DL (3.4-5.0); ALBUMIN/GLOBULIN RATIO 0.7 (1.1-1.5); ALKALINE PHOSPHATASE 105 IU/L (46-116); ANION GAP 11 (8-16); ASPARTATE AMINO TRANSFERASE 23 U/L (10-37); BILIRUBIN,TOTAL 0.5 MG/DL (0.1-1.0); BLOOD UREA NITROGEN 14 MG/DL (7-18); BUN/CREATININE RATIO 16.7 (5.4-32.0); CALCIUM 7.9 MG/DL (8.5-10.1); CHLORIDE 109 MMOL/L (99-107); CREATININE 0.84 MG/DL (0.60-1.10); GLUCOSE 204 MG/DL (70-104); MAGNESIUM 1.5 MG/DL (1.5-2.4); POTASSIUM 3.4 MMOL/L (3.5-5.1); SODIUM 146 MMOL/L (135-145); TOTAL PROTEIN 6.2 G/DL (6.4-8.2); eGFR > 90 ML/MIN
[2017-10-26] MEDS: pantoprazole 40 MG vial IV SCH (20:24)
[2017-10-26] MEDS: normal saline 1000ml 1,000 ML IV SCH (20:27)
[2017-10-26] MEDS: FENTANYL-0.9 % NACL/PF 100 ML IV PRN (20:43)
[2017-10-26 21:00] VITALS: BP 139/82
[2017-10-26 22:00] VITALS: BP 135/75
[2017-10-26 23:00] VITALS: BP 127/82
[2017-10-26] MEDS ORDERED: sodium chloride 0.45% 1,000 ML IV ONE (23:45)
[2017-10-27] VITALS (24 sets, daily range): BP systolic 92–141; BP diastolic 61–97
[2017-10-27 01:17] LABS: INR 0.9 INR; PARTIAL THROMBOPLASTIN TIME 25 SECONDS (22-32); PROTHROMBIN TIME 9.5 SECONDS (9.0-12.0)
[2017-10-27] MEDS: FENTANYL-0.9 % NACL/PF 100 ML IV PRN ×2 (03:13→08:47)
[2017-10-27 03:31] LABS: ABG BASE EXCESS -0.4 mmol/L (-2.0-3.0); ABG HCO3 24.1 mmol/L (22.0-26.0); ABG OXYGEN SATURATION 97.8 % (95-98); ABG PCO2 (T) 39.7 mmHg (35.0-48.0); ABG PH (T) 7.402 (7.350-7.450); ABG PO2 (T) 107.9 mmHg (83-108); ALLEN'S TEST Positive; FCOHb 0.3 % (0.5-1.5); FMetHb 0.3 % (0.3-1.12); FO2Hb 97.2 % (94-100); MINUTE VOLUME 9 L/min; PATIENT TEMPERATURE 37.2; PEEP 5 cm H2O; RESPIRATORY RATE 16 b/min; RESPIRATORY RATE (OBSERVED) 16 b/min; TIDAL VOLUME 500 mL; TOTAL HEMOGLOBIN 13.3 G/dl (14.0-18.0)
[2017-10-27] MEDS: diphenhydrAMINE 50 mg/ml inj IV PRN (04:39)
[2017-10-27 05:31] LABS: BASOPHILS % (AUTO) 0.2 % (0-1); EOSINOPHILS % (AUTO) 0 % (0-6); HEMATOCRIT 36.7 % (42.0-52.0); HEMOGLOBIN 12.9 g/dl (14.0-17.9); LYMPHOCYTES # (AUTO) 1.3 X10'3 (1.1-4.8); LYMPHOCYTES % (AUTO) 13.8 % (21-51); MEAN CORPUSCULAR HEMOGLOBIN 34.3 PG (27.0-31.0); MEAN CORPUSCULAR HGB CONC 35.1 % (33.0-36.5); MEAN CORPUSCULAR VOLUME 97.8 FL (78-98); MEAN PLATELET VOLUME 7.8 FL (7.4-10.4); MONOCYTES # (AUTO) 0.1 X10'3 (0-0.9); MONOCYTES % (AUTO) 1.3 % (2-12); NEUTROPHILS # (AUTO) 8.1 X10'3 (1.8-7.7); NEUTROPHILS % (AUTO) 84.7 % (42-75); PLATELET COUNT 206 X10'3 (140-440); RED BLOOD COUNT 3.75 X10'6 (4.70-6.10); RED CELL DISTRIBUTION WIDTH 13.7 % (11.5-14.5); WHITE BLOOD COUNT 9.5 X10'3 (4.5-11.0)
[2017-10-27 05:56] LABS: ALANINE AMINOTRANSFERASE 38 U/L (12-78); ALBUMIN 2.6 G/DL (3.4-5.0); ALBUMIN/GLOBULIN RATIO 0.7 (1.1-1.5); ALKALINE PHOSPHATASE 103 IU/L (46-116); ANION GAP 10 (8-16); ASPARTATE AMINO TRANSFERASE 17 U/L (10-37); BILIRUBIN,TOTAL 0.3 MG/DL (0.1-1.0); BLOOD UREA NITROGEN 11 MG/DL (7-18); BUN/CREATININE RATIO 14.5 (5.4-32.0); CALCIUM 8.4 MG/DL (8.5-10.1); CHLORIDE 107 MMOL/L (99-107); CREATININE 0.76 MG/DL (0.60-1.10); GLUCOSE 131 MG/DL (70-104); MAGNESIUM 1.6 MG/DL (1.5-2.4); SODIUM 142 MMOL/L (135-145); TOTAL CARBON DIOXIDE 25.5 MMOL/L (24-32); TOTAL PROTEIN 6.4 G/DL (6.4-8.2); eGFR > 90 ML/MIN
[2017-10-27] MEDS: heparin, porcine 5000 units/ml vial SQ SCH ×3 (08:00→20:23)
[2017-10-27] MEDS: pantoprazole 40 MG vial IV SCH (08:04)
[2017-10-27] MEDS: midazolam 100mg in NS 100ml 100 ML IV PRN (08:46)
[2017-10-27] MEDS: normal saline 1000ml 1,000 ML IV SCH (09:04)
[2017-10-27] MEDS: HYDROcodone/acetaminophen 10/325mg tab PO PRN ×2 (14:00→20:22)
[2017-10-27] MEDS ORDERED: clonazePAM 1mg tablet PO ONE (14:00)
[2017-10-27] MEDS ORDERED: pregabalin 75mg capsule PO ONE (14:00)
[2017-10-27] MEDS ORDERED: HYDROmorphone/NS 1 mg/ml CADD 50 ML IV SCH (16:50)
[2017-10-27] MEDS ORDERED: naloxone 0.4 mg/ml inj IV PRN (16:55)
[2017-10-27] MEDS ORDERED: CADD PCA waste documentation MC SCH (16:55)
[2017-10-27] MEDS: clonazePAM 1mg tablet PO SCH ×2 (17:28→20:23)
[2017-10-27] MEDS: HYDROmorphone/NS 1 mg/ml CADD 50 ML IV SCH ×4 (18:04→23:00)
[2017-10-27] MEDS: sertraline 50mg tablet PO SCH (20:23)
[2017-10-27] MEDS: pregabalin 75mg capsule PO SCH (20:24)
[2017-10-27] MEDS: Melatonin 3mg tablet PO PRN (22:30)
[2017-10-28] VITALS (23 sets, daily range): BP systolic 85–134; BP diastolic 54–89
[2017-10-28] MEDS: HYDROcodone/acetaminophen 10/325mg tab PO PRN ×6 (00:27→21:01)
[2017-10-28] MEDS: HYDROmorphone/NS 1 mg/ml CADD 50 ML IV SCH ×12 (01:00→23:00)
[2017-10-28] MEDS ORDERED: mineral oil/petrolatum ophthal oint EACHEYE SCH (02:00)
[2017-10-28 05:27] LABS: BASOPHILS % (AUTO) 0.1 % (0-1); EOSINOPHILS # (AUTO) 0.5 X10'3 (0-0.9); EOSINOPHILS % (AUTO) 3.5 % (0-6); HEMATOCRIT 34.6 % (42.0-52.0); HEMOGLOBIN 11.9 g/dl (14.0-17.9); LYMPHOCYTES # (AUTO) 2.8 X10'3 (1.1-4.8); LYMPHOCYTES % (AUTO) 20.9 % (21-51); MEAN CORPUSCULAR HEMOGLOBIN 33.8 PG (27.0-31.0); MEAN CORPUSCULAR HGB CONC 34.5 % (33.0-36.5); MEAN CORPUSCULAR VOLUME 97.9 FL (78-98); MEAN PLATELET VOLUME 7.9 FL (7.4-10.4); MONOCYTES # (AUTO) 0.7 X10'3 (0-0.9); MONOCYTES % (AUTO) 4.9 % (2-12); NEUTROPHILS # (AUTO) 9.6 X10'3 (1.8-7.7); NEUTROPHILS % (AUTO) 70.6 % (42-75); PLATELET COUNT 214 X10'3 (140-440); RED BLOOD COUNT 3.53 X10'6 (4.70-6.10); RED CELL DISTRIBUTION WIDTH 13.3 % (11.5-14.5); WHITE BLOOD COUNT 13.6 X10'3 (4.5-11.0)
[2017-10-28 05:33] LABS: INR 0.9 INR; PARTIAL THROMBOPLASTIN TIME 26 SECONDS (22-32); PROTHROMBIN TIME 9.8 SECONDS (9.0-12.0)
[2017-10-28 06:12] LABS: ALANINE AMINOTRANSFERASE 31 U/L (12-78); ALBUMIN 2.7 G/DL (3.4-5.0); ALBUMIN/GLOBULIN RATIO 0.8 (1.1-1.5); ALKALINE PHOSPHATASE 92 IU/L (46-116); ANION GAP 9 (8-16); ASPARTATE AMINO TRANSFERASE 13 U/L (10-37); BILIRUBIN,TOTAL 0.3 MG/DL (0.1-1.0); BLOOD UREA NITROGEN 12 MG/DL (7-18); BUN/CREATININE RATIO 17.4 (5.4-32.0); CALCIUM 8.6 MG/DL (8.5-10.1); CHLORIDE 108 MMOL/L (99-107); CREATININE 0.69 MG/DL (0.60-1.10); GLUCOSE 126 MG/DL (70-104); POTASSIUM 3.9 MMOL/L (3.5-5.1); SODIUM 144 MMOL/L (135-145); TOTAL CARBON DIOXIDE 27.4 MMOL/L (24-32); TOTAL PROTEIN 6.3 G/DL (6.4-8.2); eGFR > 90 ML/MIN
[2017-10-28] MEDS: pantoprazole 40 MG vial IV SCH (07:49)
[2017-10-28] MEDS: clonazePAM 1mg tablet PO SCH ×4 (07:50→20:57)
[2017-10-28] MEDS: pregabalin 75mg capsule PO SCH ×2 (07:50→19:40)
[2017-10-28] MEDS: sertraline 50mg tablet PO SCH ×3 (07:51→20:57)
[2017-10-28] MEDS: heparin, porcine 5000 units/ml vial SQ SCH ×2 (08:00→19:41)
[2017-10-28] MEDS: diphenhydrAMINE 50 mg/ml inj IV PRN ×3 (10:24→23:07)
[2017-10-28] MEDS: LACTOSE-FREE FOOD 237ML (BOOST) PO SCH ×2 (13:00→19:40)
[2017-10-28] MEDS: Melatonin 3mg tablet PO PRN (20:57)
[2017-10-29] VITALS (19 sets, daily range): BP systolic 83–123; BP diastolic 52–77
[2017-10-29] MEDS: HYDROcodone/acetaminophen 10/325mg tab PO PRN ×5 (01:00→17:40)
[2017-10-29] MEDS: HYDROmorphone/NS 1 mg/ml CADD 50 ML IV SCH ×9 (01:00→17:00)
[2017-10-29] MEDS: diphenhydrAMINE 50 mg/ml inj IV PRN ×3 (05:06→17:39)
[2017-10-29 05:34] LABS: BASOPHILS # (AUTO) 0.1 X10'3 (0-0.2); BASOPHILS % (AUTO) 0.6 % (0-1); EOSINOPHILS # (AUTO) 0.5 X10'3 (0-0.9); EOSINOPHILS % (AUTO) 6.1 % (0-6); HEMATOCRIT 33.7 % (42.0-52.0); HEMOGLOBIN 11.6 g/dl (14.0-17.9); LYMPHOCYTES # (AUTO) 3.7 X10'3 (1.1-4.8); LYMPHOCYTES % (AUTO) 42.2 % (21-51); MEAN CORPUSCULAR HEMOGLOBIN 34.1 PG (27.0-31.0); MEAN CORPUSCULAR HGB CONC 34.6 % (33.0-36.5); MEAN CORPUSCULAR VOLUME 98.5 FL (78-98); MEAN PLATELET VOLUME 7.2 FL (7.4-10.4); MONOCYTES # (AUTO) 0.7 X10'3 (0-0.9); MONOCYTES % (AUTO) 7.6 % (2-12); NEUTROPHILS # (AUTO) 3.8 X10'3 (1.8-7.7); NEUTROPHILS % (AUTO) 43.5 % (42-75); PLATELET COUNT 225 X10'3 (140-440); RED BLOOD COUNT 3.42 X10'6 (4.70-6.10); RED CELL DISTRIBUTION WIDTH 13.5 % (11.5-14.5); WHITE BLOOD COUNT 8.8 X10'3 (4.5-11.0)
[2017-10-29 05:45] LABS: INR 0.9 INR; PARTIAL THROMBOPLASTIN TIME 26 SECONDS (22-32); PROTHROMBIN TIME 9.5 SECONDS (9.0-12.0)
[2017-10-29 05:48] LABS: ALANINE AMINOTRANSFERASE 31 U/L (12-78); ALBUMIN 2.7 G/DL (3.4-5.0); ALBUMIN/GLOBULIN RATIO 0.8 (1.1-1.5); ALKALINE PHOSPHATASE 99 IU/L (46-116); ANION GAP 7 (8-16); ASPARTATE AMINO TRANSFERASE 15 U/L (10-37); BILIRUBIN,TOTAL 0.3 MG/DL (0.1-1.0); BLOOD UREA NITROGEN 18 MG/DL (7-18); BUN/CREATININE RATIO 20.9 (5.4-32.0); CALCIUM 8.2 MG/DL (8.5-10.1); CHLORIDE 108 MMOL/L (99-107); CREATININE 0.86 MG/DL (0.60-1.10); GLUCOSE 88 MG/DL (70-104); MAGNESIUM 1.8 MG/DL (1.5-2.4); POTASSIUM 3.8 MMOL/L (3.5-5.1); SODIUM 145 MMOL/L (135-145); TOTAL CARBON DIOXIDE 30.3 MMOL/L (24-32); eGFR > 90 ML/MIN
[2017-10-29] MEDS: pantoprazole 40 MG vial IV SCH (07:31)
[2017-10-29] MEDS: sertraline 50mg tablet PO SCH ×2 (07:32→13:37)
[2017-10-29] MEDS: pregabalin 75mg capsule PO SCH (07:32)
[2017-10-29] MEDS: clonazePAM 1mg tablet PO SCH ×3 (07:32→17:40)
[2017-10-29] MEDS: heparin, porcine 5000 units/ml vial SQ SCH (07:40)
[2017-10-29] MEDS: LACTOSE-FREE FOOD 237ML (BOOST) PO SCH ×3 (08:15→18:23)
[2017-10-30] MEDS ORDERED: pantoprazole 40mg Tablet.DR PO SCH (07:30)
== END 2017-10-29 19:08 | DRG 208 ==
LOC: ER 18:00 → ED HOLD 20:07 → CICU 2S 20:55
PROC: 5A1935Z Respiratory Ventilation, Less than 24 Consecutive Hours (ICD-10-PCS; principal; 2017-10-26)
PROC: 0BH18EZ Insertion of Endotracheal Airway into Trachea, Via Natural or Artificial Opening Endoscopic (ICD-10-PCS; 2017-10-26)
DX: J96.01 Acute respiratory failure with hypoxia (principal); Z89.612 Acquired absence of left leg above knee; T88.6XXA Anaphylactic reaction due to adverse effect of correct drug or medicament properly administered, initial encounter; T36.4X5A Adverse effect of tetracyclines, initial encounter; D72.829 Elevated white blood cell count, unspecified; F41.9 Anxiety disorder, unspecified; F32.9 Major depressive disorder, single episode, unspecified; Z90.49 Acquired absence of other specified parts of digestive tract; Z88.1 Allergy status to other antibiotic agents; Z91.048 Other nonmedicinal substance allergy status; Z88.2 Allergy status to sulfonamides; Z88.8 Allergy status to other drugs, medicaments and biological substances; Z79.899 Other long term (current) drug therapy; Z86.718 Personal history of other venous thrombosis and embolism; Y92.89 Other specified places as the place of occurrence of the external cause
CPT/HCPCS: 36415; 36600; 71045; 80053; 82803; 82948; 83605; 83735; 84145; 85018; 85025; 85610; 85730; 87040; 87070; 87077; 87186; 94002; 94003; 94760; 96361; 96374; 96375; 96376; 97116; 97162; 97530; 99285; A6213; A6258; A6449; C1758; C9113; J0171; J1170; J1200; J1644; J2250; J2704; J2930; J3490; J7030

== ENCOUNTER 2017-11-04 00:44 | Inpatient (IN) | payer MEDICARE, MEDICAID ==
[2017-11-04] VITALS (21 sets, daily range): BP systolic 100–140; BP diastolic 61–86
[~2017-11-04] VITALS: Ht 182.9 cm; Wt 95.5 kg
[~2017-11-04 00:44] MED LIST changes: -epiNEPHrine 0.1mg/ml 10ml syringe ONE; -epiNEPHrine 1 mg/ml 30ml MDV ONE; -etomidate 2mg/ml inj. ONE; -rocuronium 10mg/ml inj IV ONE; -sod chloride 0.9% 10ml flush syringe IV ONE
[2017-11-04] MEDS ORDERED: midazolam 100mg in NS 100ml 100 ML IV PRN ×2 (00:55→01:45)
[2017-11-04] MEDS ORDERED: normal saline 1000ML IV soln IVB ONE (00:55)
[2017-11-04] MEDS ORDERED: FENTANYL-0.9 % NACL/PF 100 ML IV PRN ×2 (00:55→01:45)
[2017-11-04 01:05] LABS: BASOPHILS # (AUTO) 0.1 X10'3 (0-0.2); BASOPHILS % (AUTO) 0.6 % (0-1); EOSINOPHILS # (AUTO) 0.6 X10'3 (0-0.9); EOSINOPHILS % (AUTO) 4.1 % (0-6); HEMOGLOBIN 13.9 g/dl (14.0-17.9); LYMPHOCYTES # (AUTO) 6.1 X10'3 (1.1-4.8); LYMPHOCYTES % (AUTO) 44.5 % (21-51); MEAN CORPUSCULAR HEMOGLOBIN 32.9 PG (27.0-31.0); MEAN CORPUSCULAR HGB CONC 33.8 % (33.0-36.5); MEAN CORPUSCULAR VOLUME 97.5 FL (78-98); MEAN PLATELET VOLUME 7.6 FL (7.4-10.4); NEUTROPHILS # (AUTO) 6.1 X10'3 (1.8-7.7); NEUTROPHILS % (AUTO) 43.8 % (42-75); PLATELET COUNT 228 X10'3 (140-440); WHITE BLOOD COUNT 13.9 X10'3 (4.5-11.0)
[2017-11-04 01:06] LABS: ABG BASE EXCESS 0.3 mmol/L (-2.0-3.0); ABG HCO3 27.5 mmol/L (22.0-26.0); ABG OXYGEN SATURATION 94.4 % (95-98); ABG PCO2 (T) 54.7 mmHg (35.0-48.0); ABG PH (T) 7.319 (7.350-7.450); ABG PO2 (T) 74.8 mmHg (83-108); ALLEN'S TEST Positive; FCOHb 5.9 % (0.5-1.5); FMetHb 0.1 % (0.3-1.12); FO2Hb 88.7 % (94-100); PEEP 5 cm H2O; RESPIRATORY RATE 20 b/min; RESPIRATORY RATE (OBSERVED) 19 b/min; TIDAL VOLUME 400 mL; TOTAL HEMOGLOBIN 14.4 G/dl (14.0-18.0)
[2017-11-04 01:19] LABS: ALANINE AMINOTRANSFERASE 30 U/L (12-78); ALBUMIN 3.5 G/DL (3.4-5.0); ALBUMIN/GLOBULIN RATIO 0.9 (1.1-1.5); ALKALINE PHOSPHATASE 128 IU/L (46-116); ANION GAP 9 (8-16); ASPARTATE AMINO TRANSFERASE 19 U/L (10-37); BILIRUBIN,TOTAL 0.3 MG/DL (0.1-1.0); BLOOD UREA NITROGEN 13 MG/DL (7-18); BUN/CREATININE RATIO 14.9 (5.4-32.0); CALCIUM 8.8 MG/DL (8.5-10.1); CHLORIDE 102 MMOL/L (99-107); CREATININE 0.87 MG/DL (0.60-1.10); GLUCOSE 135 MG/DL (70-104); POTASSIUM 3.4 MMOL/L (3.5-5.1); SODIUM 142 MMOL/L (135-145); TOTAL CARBON DIOXIDE 30.9 MMOL/L (24-32); TOTAL PROTEIN 7.6 G/DL (6.4-8.2); eGFR > 90 ML/MIN
[2017-11-04] MEDS ORDERED: etomidate 2mg/ml inj. IV ONE (01:25)
[2017-11-04] MEDS ORDERED: rocuronium 10mg/ml inj IV ONE ×2 (01:25→15:00)
[2017-11-04] MEDS ORDERED: methylPREDNISolone sod succ 125mg/2ml vial IV ONE (01:25)
[2017-11-04] MEDS: K, MAG and/or Phos replacement - Verify level? MC SCH ×2 (01:30→08:00)
[2017-11-04] MEDS ORDERED: magnesium 2GM in 50ml NS 50 ML IV PRN (01:30)
[2017-11-04] MEDS ORDERED: albuterol 2.5 MG/3 ML nebule NEB SCH (01:30)
[2017-11-04] MEDS ORDERED: potassium Cl 40MEQ/NS 500ml 500 ML IV PRN ×2 (01:30)
[2017-11-04] MEDS ORDERED: magnesium 4gm in 100ml NS 100 ML IV PRN (01:30)
[2017-11-04] MEDS ORDERED: fentaNYL/PF 50MCG/1 ML 2ML syringe IV PRN (01:45)
[2017-11-04] MEDS ORDERED: midazolam 2 mg/2 ml injection IV ONE (01:45)
[2017-11-04] MEDS: famotidine/PF 10 mg/ml inj IV SCH ×3 (03:39→19:44)
[2017-11-04] MEDS: diphenhydrAMINE 50 mg/ml inj IV SCH ×4 (03:39→19:44)
[2017-11-04] MEDS: normal saline 1000ml 1,000 ML IV SCH ×2 (03:40→12:38)
[2017-11-04] MEDS: methylPREDNISolone sod succ 125mg/2ml vial IV SCH ×4 (03:41→19:44)
[2017-11-04 04:31] LABS: ABG BASE EXCESS -0.6 mmol/L (-2.0-3.0); ABG HCO3 24.4 mmol/L (22.0-26.0); ABG OXYGEN SATURATION 97.7 % (95-98); ABG PCO2 (T) 41.3 mmHg (35.0-48.0); ABG PH (T) 7.389 (7.350-7.450); ABG PO2 (T) 109.8 mmHg (83-108); ALLEN'S TEST Positive; FMetHb 0.2 % (0.3-1.12); FO2Hb 94.6 % (94-100); MINUTE VOLUME 9 L/min; PEEP 5 cm H2O; RESPIRATORY RATE 20 b/min; RESPIRATORY RATE (OBSERVED) 20 b/min; TIDAL VOLUME 400 mL; TOTAL HEMOGLOBIN 13.5 G/dl (14.0-18.0)
[2017-11-04] MEDS: pantoprazole 40 MG vial IV SCH (08:47)
[2017-11-04] MEDS: heparin, porcine 5000 units/ml vial SQ SCH ×2 (08:48→19:52)
[2017-11-04 10:16] LABS: MAGNESIUM 1.8 MG/DL (1.5-2.4); PHOSPHORUS 3.6 MG/DL (2.3-4.5)
[2017-11-04] MEDS ORDERED: HYDROcodone/acetaminophen 10/325mg tab PO PRN ×4 (12:35→17:40)
[2017-11-04] MEDS: clonazePAM 1mg tablet PO SCH ×3 (12:48→22:07)
[2017-11-04] MEDS ORDERED: clonazePAM 1mg tablet PO SCH (13:00)
[2017-11-04] MEDS ORDERED: epiNEPHrine 0.1mg/ml 10ml syringe ONE (15:00)
[2017-11-04] MEDS ORDERED: sodium bicarbonate (8.4%) 1 mEq/ml syringe ONE (15:00)
[2017-11-04] MEDS ORDERED: etomidate 2mg/ml inj. ONE (15:00)
[2017-11-04] MEDS ORDERED: OXYC10TA57 (15:37)
[2017-11-04] MEDS ORDERED: OXYC10TA47 (15:37)
[2017-11-04] MEDS ORDERED: OMEP20TA23 PO (15:37)
[2017-11-04] MEDS ORDERED: HYDR-3964 (15:37)
[2017-11-04] MEDS ORDERED: HYDR-3972 PO (15:38)
[2017-11-04] MEDS ORDERED: MELA3TAB PO (15:39)
[2017-11-04] MEDS: oxyCODONE IR 5mg (immed. release) tablet PO PRN ×2 (18:06→22:07)
[2017-11-04] MEDS: pregabalin 75mg capsule PO SCH (19:44)
[2017-11-04] MEDS: oxyCODONE SR 40mg (sust release) tab PO SCH (19:45)
[2017-11-04] MEDS ORDERED: PREGABALIN PO SCH (20:00)
[2017-11-05] VITALS (12 sets, daily range): BP systolic 106–118; BP diastolic 63–73
[2017-11-05] MEDS: mineral oil/petrolatum ophthal oint EACHEYE SCH ×2 (01:08→07:48)
[2017-11-05] MEDS: diphenhydrAMINE 50 mg/ml inj IV SCH ×2 (01:14→07:47)
[2017-11-05] MEDS: methylPREDNISolone sod succ 125mg/2ml vial IV SCH ×2 (01:14→07:47)
[2017-11-05] MEDS: oxyCODONE IR 5mg (immed. release) tablet PO PRN ×3 (03:41→11:47)
[2017-11-05 05:36] LABS: BASOPHILS % (AUTO) 0.1 % (0-1); EOSINOPHILS % (AUTO) 0 % (0-6); HEMATOCRIT 37.2 % (42.0-52.0); HEMOGLOBIN 12.8 g/dl (14.0-17.9); LYMPHOCYTES # (AUTO) 2.2 X10'3 (1.1-4.8); LYMPHOCYTES % (AUTO) 12.3 % (21-51); MEAN CORPUSCULAR HEMOGLOBIN 33.7 PG (27.0-31.0); MEAN CORPUSCULAR HGB CONC 34.3 % (33.0-36.5); MEAN CORPUSCULAR VOLUME 98.3 FL (78-98); MEAN PLATELET VOLUME 8.2 FL (7.4-10.4); MONOCYTES # (AUTO) 0.2 X10'3 (0-0.9); MONOCYTES % (AUTO) 1.2 % (2-12); NEUTROPHILS # (AUTO) 15.4 X10'3 (1.8-7.7); NEUTROPHILS % (AUTO) 86.4 % (42-75); PLATELET COUNT 191 X10'3 (140-440); RED BLOOD COUNT 3.78 X10'6 (4.70-6.10); RED CELL DISTRIBUTION WIDTH 13.7 % (11.5-14.5); WHITE BLOOD COUNT 17.8 X10'3 (4.5-11.0)
[2017-11-05 05:45] LABS: PARTIAL THROMBOPLASTIN TIME 27 SECONDS (22-32); PROTHROMBIN TIME 10.2 SECONDS (9.0-12.0)
[2017-11-05 06:01] LABS: ALANINE AMINOTRANSFERASE 26 U/L (12-78); ALBUMIN/GLOBULIN RATIO 0.8 (1.1-1.5); ALKALINE PHOSPHATASE 109 IU/L (46-116); ANION GAP 10 (8-16); ASPARTATE AMINO TRANSFERASE 13 U/L (10-37); BILIRUBIN,TOTAL 0.2 MG/DL (0.1-1.0); BLOOD UREA NITROGEN 8 MG/DL (7-18); BUN/CREATININE RATIO 13.1 (5.4-32.0); CALCIUM 9.1 MG/DL (8.5-10.1); CHLORIDE 108 MMOL/L (99-107); CREATININE 0.61 MG/DL (0.60-1.10); GLUCOSE 155 MG/DL (70-104); MAGNESIUM 1.9 MG/DL (1.5-2.4); POTASSIUM 3.7 MMOL/L (3.5-5.1); SODIUM 145 MMOL/L (135-145); TOTAL CARBON DIOXIDE 27.1 MMOL/L (24-32); TOTAL PROTEIN 6.8 G/DL (6.4-8.2); eGFR > 90 ML/MIN
[2017-11-05] MEDS: pregabalin 75mg capsule PO SCH (07:47)
[2017-11-05] MEDS: pantoprazole 40 MG vial IV SCH (07:47)
[2017-11-05] MEDS: famotidine/PF 10 mg/ml inj IV SCH (07:48)
[2017-11-05] MEDS: oxyCODONE SR 40mg (sust release) tab PO SCH (07:48)
[2017-11-05] MEDS: clonazePAM 1mg tablet PO SCH (07:48)
[2017-11-05] MEDS: heparin, porcine 5000 units/ml vial SQ SCH (07:48)
[2017-11-05] MEDS: K, MAG and/or Phos replacement - Verify level? MC SCH (08:00)
== END 2017-11-05 12:15 | disposition home or self-care (01) | DRG 208 ==
LOC: ER 00:45 → ED HOLD 01:28 → ICU 2S 03:05
PROVIDERS: ADMIT Internal Medicine Critical Care Medicine; ATTEND Internal Medicine Critical Care Medicine
PROC: 5A1935Z Respiratory Ventilation, Less than 24 Consecutive Hours (ICD-10-PCS; principal; 2017-11-04)
PROC: 0BH17EZ Insertion of Endotracheal Airway into Trachea, Via Natural or Artificial Opening (ICD-10-PCS; 2017-11-04)
DX: J96.00 Acute respiratory failure, unspecified whether with hypoxia or hypercapnia (principal); Z89.612 Acquired absence of left leg above knee; T88.6XXA Anaphylactic reaction due to adverse effect of correct drug or medicament properly administered, initial encounter; F41.9 Anxiety disorder, unspecified; T43.225A Adverse effect of selective serotonin reuptake inhibitors, initial encounter; I45.6 Pre-excitation syndrome; F10.10 Alcohol abuse, uncomplicated; Z96.612 Presence of left artificial shoulder joint; R40.2410 Glasgow coma scale score 13-15, unspecified time; Z56.0 Unemployment, unspecified; Z90.49 Acquired absence of other specified parts of digestive tract; Z88.6 Allergy status to analgesic agent; Z88.2 Allergy status to sulfonamides; Z88.1 Allergy status to other antibiotic agents; Z88.8 Allergy status to other drugs, medicaments and biological substances; Z79.01 Long term (current) use of anticoagulants; Z86.718 Personal history of other venous thrombosis and embolism; Y92.89 Other specified places as the place of occurrence of the external cause
CPT/HCPCS: 36415; 36600; 71045; 80053; 82803; 83605; 83735; 84100; 85018; 85025; 85610; 85730; 87040; 87070; 94002; 94760; 96365; 96375; 97110; 97161; 97530; 99291; A6213; C9113; J0171; J1200; J1644; J2250; J2930; J3480; J3490; J7030

== ENCOUNTER 2017-11-16 18:31 | Emergency (ER) | payer MEDICARE, MEDICAID ==
[~2017-11-16] VITALS: Ht 193 cm; Wt 90.9 kg
[~2017-11-16 18:31] MED LIST changes: +HYDR-3972 PO; -HYDR-565 PO; +MELA3TAB PO; +OMEP20TA23 PO; +OXYC10TA57; -SERT100T10 PO
[2017-11-16 18:43] VITALS: BP 119/82
== END 2017-11-16 22:28 | disposition left against medical advice (07) ==
LOC: ER 18:32
DX: G56.31 Lesion of radial nerve, right upper limb (principal); Z86.718 Personal history of other venous thrombosis and embolism; Z90.49 Acquired absence of other specified parts of digestive tract; Z98.890 Other specified postprocedural states; Z56.0 Unemployment, unspecified; Z88.1 Allergy status to other antibiotic agents; Z88.8 Allergy status to other drugs, medicaments and biological substances; Z79.899 Other long term (current) drug therapy
CPT/HCPCS: 99281

== ENCOUNTER 2017-11-18 08:03 | Emergency (ER) | payer MEDICARE, MEDICAID ==
[~2017-11-18] VITALS: Ht 195.6 cm; Wt 86.4 kg
[2017-11-18 09:06] VITALS: BP 149/93
== END 2017-11-18 10:00 | disposition home or self-care (01) ==
LOC: ER 08:03
DX: G56.31 Lesion of radial nerve, right upper limb (principal); M25.512 Pain in left shoulder; Z90.49 Acquired absence of other specified parts of digestive tract; Z98.890 Other specified postprocedural states; Z88.1 Allergy status to other antibiotic agents; Z79.899 Other long term (current) drug therapy; Z56.0 Unemployment, unspecified
CPT/HCPCS: 73030; 99284

== ENCOUNTER 2017-11-30 03:27 | Emergency (ER) | payer MEDICARE, MEDICAID ==
[~2017-11-30] VITALS: Ht 190.5 cm; Wt 100.0 kg
[2017-11-30] MEDS ORDERED: diphenhydrAMINE 50 mg/ml inj IV ONE (03:35)
[2017-11-30] MEDS ORDERED: methylPREDNISolone sod succ 125mg/2ml vial IV ONE (03:35)
[2017-11-30] MEDS ORDERED: ipratropium/albuterol 3ml nebule NEB ONE (03:35)
[2017-11-30] MEDS ORDERED: epiNEPHrine 1 mg/ml inj IM ONE (03:35)
[2017-11-30 03:41] LABS: BASOPHILS % (AUTO) 0.5 % (0-1); EOSINOPHILS # (AUTO) 0.1 X10'3 (0-0.9); EOSINOPHILS % (AUTO) 1.3 % (0-6); HEMATOCRIT 43.5 % (42.0-52.0); HEMOGLOBIN 14.9 g/dl (14.0-17.9); LYMPHOCYTES # (AUTO) 3.8 X10'3 (1.1-4.8); MEAN CORPUSCULAR HEMOGLOBIN 34.8 PG (27.0-31.0); MEAN CORPUSCULAR HGB CONC 34.4 % (33.0-36.5); MEAN CORPUSCULAR VOLUME 101.2 FL (78-98); MEAN PLATELET VOLUME 7.3 FL (7.4-10.4); MONOCYTES # (AUTO) 0.8 X10'3 (0-0.9); MONOCYTES % (AUTO) 9.2 % (2-12); NEUTROPHILS # (AUTO) 4.1 X10'3 (1.8-7.7); PLATELET COUNT 116 X10'3 (140-440); RED CELL DISTRIBUTION WIDTH 18.2 % (11.5-14.5); WHITE BLOOD COUNT 8.8 X10'3 (4.5-11.0)
[2017-11-30 03:51] LABS: ABG BASE EXCESS -0.8 mmol/L (-2.0-3.0); ABG HCO3 23.5 mmol/L (22.0-26.0); ABG OXYGEN SATURATION 89.6 % (95-98); ABG PCO2 (T) 36.9 mmHg (35.0-48.0); ABG PH (T) 7.419 (7.350-7.450); ABG PO2 (T) 56.6 mmHg (83-108); FCOHb 6.1 % (0.5-1.5); FLOW 8 L/min; FMetHb 0.1 % (0.3-1.12); PATIENT TEMPERATURE 36.6; RESPIRATORY RATE (OBSERVED) 26 b/min; TOTAL HEMOGLOBIN 15.3 G/dl (14.0-18.0)
[2017-11-30 03:55] LABS: ALANINE AMINOTRANSFERASE 62 U/L (12-78); ALBUMIN 3.4 G/DL (3.4-5.0); ALBUMIN/GLOBULIN RATIO 0.9 (1.1-1.5); ALKALINE PHOSPHATASE 153 IU/L (46-116); ANION GAP 11 (8-16); ASPARTATE AMINO TRANSFERASE 69 U/L (10-37); BILIRUBIN,TOTAL 0.2 MG/DL (0.1-1.0); BLOOD UREA NITROGEN 14 MG/DL (7-18); BUN/CREATININE RATIO 17.3 (5.4-32.0); CALCIUM 8.4 MG/DL (8.5-10.1); CHLORIDE 108 MMOL/L (99-107); CREATININE 0.81 MG/DL (0.60-1.10); GLUCOSE 103 MG/DL (70-104); POTASSIUM 3.8 MMOL/L (3.5-5.1); SODIUM 146 MMOL/L (135-145); TOTAL CARBON DIOXIDE 27.2 MMOL/L (24-32); TOTAL PROTEIN 7.3 G/DL (6.4-8.2); eGFR > 90 ML/MIN
[2017-11-30 04:22] VITALS: BP 147/110
== END 2017-11-30 04:24 | disposition home or self-care (01) ==
LOC: ER 03:28
DX: F10.129 Alcohol abuse with intoxication, unspecified (principal); R41.82 Altered mental status, unspecified; G89.29 Other chronic pain; Z89.612 Acquired absence of left leg above knee; Z88.2 Allergy status to sulfonamides; Z88.1 Allergy status to other antibiotic agents; Z88.6 Allergy status to analgesic agent; Z86.718 Personal history of other venous thrombosis and embolism; Z56.0 Unemployment, unspecified; Y90.9 Presence of alcohol in blood, level not specified
CPT/HCPCS: 36415; 36600; 71045; 80053; 82803; 85018; 85025; 94640; 94760; 96374; 96375; 99285; J1200; J2930

== ENCOUNTER 2020-07-20 05:55 | Emergency (ER) | payer MEDICARE, MEDICAID ==
[~2020-07-20] VITALS: Ht 182.9 cm; Wt 84.5 kg
[~2020-07-20 05:55] MED LIST changes: -CLON1TAB4 PO; -HYDR-3972 PO; +KEP500T PO; -MELA3TAB PO; -OMEP20TA23 PO; -OXYC10TA57
[2020-07-20] MEDS ORDERED: normal saline 1000ML IV soln IVB ONE (06:40)
[2020-07-20] MEDS ORDERED: LORazepam 2 mg/ml vial IV ONE (06:40)
[2020-07-20] MEDS ORDERED: morphine 4 MG/ML inj SYRINge IV ONE ×2 (07:10→09:00)
[2020-07-20 08:05] LABS: BASOPHILS # (AUTO) 0.1 X10'3 (0-0.2); EOSINOPHILS # (AUTO) 0.1 X10'3 (0-0.9); EOSINOPHILS % (AUTO) 0.9 % (0-6); HEMOGLOBIN 14.4 g/dl (14.0-17.9); LYMPHOCYTES # (AUTO) 2.9 X10'3 (1.1-4.8); LYMPHOCYTES % (AUTO) 35.5 % (21-51); MEAN CORPUSCULAR HGB CONC 33.4 g/dL (33.0-36.5); MEAN CORPUSCULAR VOLUME 89.9 FL (78-98); MEAN PLATELET VOLUME 7.3 FL (7.4-10.4); MONOCYTES # (AUTO) 0.7 X10'3 (0-0.9); MONOCYTES % (AUTO) 8.1 % (2-12); NEUTROPHILS # (AUTO) 4.5 X10'3 (1.8-7.7); NEUTROPHILS % (AUTO) 54.5 % (42-75); PLATELET COUNT 147 X10'3 (140-440); RED BLOOD COUNT 4.78 X10'6 (4.70-6.10); RED CELL DISTRIBUTION WIDTH 18.1 % (11.5-14.5); WHITE BLOOD COUNT 8.2 X10'3 (4.5-11.0)
[2020-07-20 08:24] LABS: ALANINE AMINOTRANSFERASE 31 U/L (12-78); ALBUMIN 3.7 G/DL (3.4-5.0); ALKALINE PHOSPHATASE 97 IU/L (46-116); ANION GAP 14 (8-16); ASPARTATE AMINO TRANSFERASE 25 U/L (10-37); BILIRUBIN,TOTAL 0.3 MG/DL (0.1-1.0); BLOOD UREA NITROGEN 8 MG/DL (7-18); BUN/CREATININE RATIO 8.6 (5.4-32.0); CALCIUM 8.8 MG/DL (8.5-10.1); CHLORIDE 107 MMOL/L (99-107); CREATININE 0.93 MG/DL (0.60-1.10); ETHANOL 0.058 GM/DL (0.0-0.010); GLUCOSE 87 MG/DL (70-104); POTASSIUM 3.3 MMOL/L (3.5-5.1); SODIUM 145 MMOL/L (135-145); TOTAL CARBON DIOXIDE 23.9 MMOL/L (24-32); TOTAL PROTEIN 7.3 G/DL (6.4-8.2); eGFR > 90 ML/MIN
[2020-07-20 09:32] VITALS: BP 120/83
== END 2020-07-20 10:24 | disposition home or self-care (01) ==
LOC: ER 05:55
DX: R56.9 Unspecified convulsions (principal); G89.29 Other chronic pain; Z86.718 Personal history of other venous thrombosis and embolism; Z90.89 Acquired absence of other organs; Z98.890 Other specified postprocedural states; Z56.0 Unemployment, unspecified; Z88.1 Allergy status to other antibiotic agents; Z88.8 Allergy status to other drugs, medicaments and biological substances; Z79.899 Other long term (current) drug therapy
CPT/HCPCS: 36415; 70450; 71045; 73030; 73552; 80053; 80320; 85025; 93005; 96361; 96374; 96375; 96376; 99285; J2060; J2270; J7030

== ENCOUNTER 2020-10-24 17:48 | Emergency (ER) | payer MEDICAID, MEDICARE ==
[~2020-10-24] VITALS: Ht 185.4 cm; Wt 90.9 kg
[2020-10-24] MEDS ORDERED: normal saline 1000ML IV soln IVB ONE (18:15)
--- NOTE | 2020-10-24 18:55 | NUR ---
Pt vitals taken, IV started, pt tries to get out of bed but easily put back in bed. Pt resting in bed now
[2020-10-24 19:00] LABS: BASOPHILS % (AUTO) 0.6 % (0-1); EOSINOPHILS # (AUTO) 0.1 X10'3 (0-0.9); EOSINOPHILS % (AUTO) 1.2 % (0-6); HEMATOCRIT 46.1 % (42.0-52.0); HEMOGLOBIN 15.1 g/dl (14.0-17.9); LYMPHOCYTES # (AUTO) 3.5 X10'3 (1.1-4.8); MEAN CORPUSCULAR HEMOGLOBIN 30.6 PG (27.0-31.0); MEAN CORPUSCULAR HGB CONC 32.8 g/dL (33.0-36.5); MEAN CORPUSCULAR VOLUME 93.4 FL (78-98); MEAN PLATELET VOLUME 7.1 FL (7.4-10.4); MONOCYTES # (AUTO) 0.3 X10'3 (0-0.9); MONOCYTES % (AUTO) 4.6 % (2-12); NEUTROPHILS # (AUTO) 2.8 X10'3 (1.8-7.7); NEUTROPHILS % (AUTO) 41.6 % (42-75); PLATELET COUNT 189 X10'3 (140-440); RED BLOOD COUNT 4.93 X10'6 (4.70-6.10); RED CELL DISTRIBUTION WIDTH 19.6 % (11.5-14.5); WHITE BLOOD COUNT 6.7 X10'3 (4.5-11.0)
[2020-10-24] MEDS ORDERED: haloperidol lactate 5mg/ml inj IM ONE (19:00)
[2020-10-24 19:17] LABS: ALANINE AMINOTRANSFERASE 181 U/L (12-78); ALBUMIN 4.1 G/DL (3.4-5.0); ALBUMIN/GLOBULIN RATIO 1.1 (1.1-1.5); ALKALINE PHOSPHATASE 218 IU/L (46-116); ANION GAP 17 (8-16); ASPARTATE AMINO TRANSFERASE 205 U/L (10-37); BILIRUBIN,TOTAL 0.3 MG/DL (0.1-1.0); BLOOD UREA NITROGEN 13 MG/DL (7-18); BUN/CREATININE RATIO 15.7 (5.4-32.0); CALCIUM 8.6 MG/DL (8.5-10.1); CHLORIDE 108 MMOL/L (99-107); CREATININE 0.83 MG/DL (0.60-1.10); GLUCOSE 92 MG/DL (70-104); LIPASE 144 U/L (73-393); MAGNESIUM 1.9 MG/DL (1.5-2.4); POTASSIUM 3.6 MMOL/L (3.5-5.1); SODIUM 148 MMOL/L (135-145); TOTAL CARBON DIOXIDE 22.6 MMOL/L (24-32); TOTAL PROTEIN 7.8 G/DL (6.4-8.2); eGFR > 90 ML/MIN
[2020-10-24 19:21] LABS: ETHANOL 0.372 GM/DL (0.0-0.010)
--- NOTE | 2020-10-24 20:58 | NUR ---
Multiple phone calls made to pts friends/family. Mostly no answer. Tamera reports "he has burned all his bridges." Di stated she could pick him up, then calls at this time and states "I cant come tonight, I cant drive at night." She states she can pick him up in the am Di [phone]
[2020-10-24 21:11] LABS: TOTAL CELLS COUNTED 100
[2020-10-24 21:12] LABS: ANISOCYTOSIS 2+; PLATELET ESTIMATE NORMAL
[2020-10-24 21:13] LABS: LARGE PLATELETS FEW; TOXIC GRANULATION 1+
[2020-10-24 21:15] LABS: POLYCHROMASIA FEW; SPHEROCYTES FEW
--- NOTE | 2020-10-24 22:40 | NUR ---
Pt found to be standing stable at bedside. Pt A&Ox4, PWD and talking clearly.
--- NOTE | 2020-10-24 22:55 | NUR ---
Patient was observed as I was walking by,standing in room with out assist on right leg, left leg is aka, with a steady stance brushing off sweatshirt aggressively denied needing assistance when asked by staff. patient AOx4
--- NOTE | 2020-10-25 00:05 | NUR ---
Pt gait tested with crutches. Pt showed to be steady gated and states "I'm a pro!". Pt continues to have stable vitals and A&Ox4, PWD
[2020-10-25 00:27] VITALS: BP 135/94
== END 2020-10-25 00:30 | disposition home or self-care (01) ==
LOC: ER 17:49
DX: F10.129 Alcohol abuse with intoxication, unspecified (principal); R10.10 Upper abdominal pain, unspecified; G89.29 Other chronic pain; F17.200 Nicotine dependence, unspecified, uncomplicated; Z86.69 Personal history of other diseases of the nervous system and sense organs; Z86.718 Personal history of other venous thrombosis and embolism; Z90.89 Acquired absence of other organs; Z98.890 Other specified postprocedural states; Z72.89 Other problems related to lifestyle; Z56.0 Unemployment, unspecified; Z88.1 Allergy status to other antibiotic agents; Z88.8 Allergy status to other drugs, medicaments and biological substances; Z79.899 Other long term (current) drug therapy; Y90.0 Blood alcohol level of less than 20 mg/100 ml
CPT/HCPCS: 36415; 71045; 80053; 80320; 83690; 83735; 85007; 85025; 93005; 96360; 96372; 99285; J1630; J7030

== ENCOUNTER 2020-10-29 12:01 | Emergency (ER) | payer MEDICARE ==
[~2020-10-29] VITALS: Ht 193 cm; Wt 90.9 kg
[2020-10-29] MEDS: LORazepam 2 mg/ml vial IM ONE (12:15)
[2020-10-29] MEDS ORDERED: LORazepam 2 mg/ml vial ONE ×2 (12:30)
[2020-10-29] MEDS ORDERED: phenobarbital inj 260 MG in normal saline 100ml IV soln 98 ML IV STA (12:31)
[2020-10-29 12:50] LABS: ALANINE AMINOTRANSFERASE 220 U/L (12-78); ALBUMIN/GLOBULIN RATIO 1.1 (1.1-1.5); ALKALINE PHOSPHATASE 252 IU/L (46-116); ANION GAP 14 (8-16); ASPARTATE AMINO TRANSFERASE 242 U/L (10-37); BILIRUBIN,TOTAL 0.5 MG/DL (0.1-1.0); BLOOD UREA NITROGEN 10 MG/DL (7-18); BUN/CREATININE RATIO 14.9 (5.4-32.0); CALCIUM 8.6 MG/DL (8.5-10.1); CHLORIDE 106 MMOL/L (99-107); CREATININE 0.67 MG/DL (0.60-1.10); ETHANOL 0.266 GM/DL (0.0-0.010); GLUCOSE 83 MG/DL (70-104); POTASSIUM 4.1 MMOL/L (3.5-5.1); SODIUM 142 MMOL/L (135-145); TOTAL CARBON DIOXIDE 21.8 MMOL/L (24-32); TOTAL PROTEIN 7.8 G/DL (6.4-8.2); eGFR > 90 ML/MIN
[2020-10-29 13:07] LABS: BASOPHILS # (AUTO) 0.1 X10'3 (0-0.2); BASOPHILS % (AUTO) 1.1 % (0-1); EOSINOPHILS % (AUTO) 0.6 % (0-6); HEMATOCRIT 46.3 % (42.0-52.0); HEMOGLOBIN 15.5 g/dl (14.0-17.9); LYMPHOCYTES # (AUTO) 2.6 X10'3 (1.1-4.8); LYMPHOCYTES % (AUTO) 44.3 % (21-51); MEAN CORPUSCULAR HGB CONC 33.5 g/dL (33.0-36.5); MEAN CORPUSCULAR VOLUME 92.5 FL (78-98); MEAN PLATELET VOLUME 7.9 FL (7.4-10.4); MONOCYTES # (AUTO) 0.3 X10'3 (0-0.9); MONOCYTES % (AUTO) 4.6 % (2-12); NEUTROPHILS # (AUTO) 2.9 X10'3 (1.8-7.7); NEUTROPHILS % (AUTO) 49.4 % (42-75); PLATELET COUNT 154 X10'3 (140-440); RED CELL DISTRIBUTION WIDTH 19.6 % (11.5-14.5); WHITE BLOOD COUNT 5.9 X10'3 (4.5-11.0)
--- NOTE | 2020-10-29 13:08 | NUR ---
PT WITH 5 MIN SEIZURE SHORTLY AFTER ARRIVAL TO ER. PA AT BEDSIDE, PT PLACED ON SIDE, SUCTIONED MOUTH. CARDIAC AND SPO2 MONITORING IN PLACE. PT GIVEN ONE IM ATIVAN 2 MG, THEN 2 MG IV ATIVAN, PER PA. PT THEN WOKE UP AND HAD TWO OTHER SEIZURE LIKE EPISODES, ONE MINUTE EACH. NOW IS AWAKE AND ALERT, PHENOBARB INFUSING.
--- NOTE | 2020-10-29 13:32 | NUR ---
AWAKE AND ALERT
[2020-10-29 14:50] LABS: ACETAMINOPHEN < 2.0 UG/ML (10-30)
[2020-10-29 15:04] LABS: URINE AMPHETAMINE SCREEN NEGATIVE (Neg); URINE BARBITUATE SCREEN NEGATIVE (Neg); URINE BENZODIAZEPINES SCREEN POSITIVE (Neg); URINE CANNABINOID SCREEN NEGATIVE (Neg); URINE COCAINE SCREEN NEGATIVE (Neg); URINE METHADONE SCREEN NEGATIVE (Neg); URINE OPIATE SCREEN NEGATIVE (Neg); URINE PHENCYCLIDINE SCREEN NEGATIVE (Neg)
--- NOTE | 2020-10-29 15:09 | NUR ---
PT STATES THAT HE TOOK A BOTTLE OF "EFFEXOR AND TRAZADONE" YESTERDAY. PA AWARE, PT PLACED ON HOLD. POISON CONTROL CALLED NOW, RECOMMENDATIONS GIVEN TO PA: IVF WATCH 8 HOURS ON HOME [employer], BENZOS FOR SEIZURES EKG AND LIVER FUNCTION TESTS AGAIN AT 1700
[2020-10-29] MEDS ORDERED: normal saline 1000ML IV soln IVB ONE ×2 (15:20→20:55)
[2020-10-29] MEDS ORDERED: LORazepam 2 mg/ml vial IV ONE (16:15)
--- NOTE | 2020-10-29 16:52 | NUR ---
PT CONTINUING TO GET OUT OF BED, REQ'S FOOD FREQUENTLY.
--- NOTE | 2020-10-29 17:54 | NUR ---
BREAKING PRIMARY RN, PT IS SITTING AT THE END OF HIS BED EATING, NO NEEDS AT THIS TIME
[2020-10-29 17:56] LABS: ALANINE AMINOTRANSFERASE 171 U/L (12-78); ALBUMIN 3.2 G/DL (3.4-5.0); ALBUMIN/GLOBULIN RATIO 0.9 (1.1-1.5); ALKALINE PHOSPHATASE 197 IU/L (46-116); ANION GAP 15 (8-16); ASPARTATE AMINO TRANSFERASE 188 U/L (10-37); BILIRUBIN,TOTAL 0.5 MG/DL (0.1-1.0); BLOOD UREA NITROGEN 11 MG/DL (7-18); BUN/CREATININE RATIO 19.6 (5.4-32.0); CALCIUM 7.8 MG/DL (8.5-10.1); CHLORIDE 104 MMOL/L (99-107); CREATININE 0.56 MG/DL (0.60-1.10); GLUCOSE 98 MG/DL (70-104); SODIUM 139 MMOL/L (135-145); TOTAL CARBON DIOXIDE 20.1 MMOL/L (24-32); TOTAL PROTEIN 6.7 G/DL (6.4-8.2); eGFR > 90 ML/MIN
[2020-10-29 17:57] LABS: POTASSIUM 4.6 MMOL/L (3.5-5.1)
--- NOTE | 2020-10-29 18:06 | NUR ---
TABATHA BULLOCK PHONE NUMBER [phone]
--- NOTE | 2020-10-29 18:18 | NUR ---
PT FAXED TO [facility]
--- NOTE | 2020-10-29 19:47 | NUR ---
Patient requested phone call to Tamera: [phone]. Patient speaking to Tamera now. Patient is calmly talking on phone.
[2020-10-29] MEDS ORDERED: FOLI0.4T2 PO (19:52)
[2020-10-29] MEDS ORDERED: RISP1TAB98 PO (19:53)
[2020-10-29] MEDS ORDERED: TOPI25TA15 PO (19:54)
[2020-10-29] MEDS ORDERED: THIA50TA10 PO (19:54)
[2020-10-29] MEDS ORDERED: TRAZ-251 PO (19:55)
[2020-10-29] MEDS ORDERED: EFF37.5XRC PO (19:56)
--- NOTE | 2020-10-29 19:57 | NUR ---
Home med list discussed with patient.
[2020-10-29] MEDS ORDERED: KEP500T PO (20:06)
[2020-10-29] MEDS ORDERED: thiamine 100mg tablet PO ONE (20:55)
[2020-10-29] MEDS ORDERED: magnesium oxide 400mg tablet PO ONE (20:55)
[2020-10-29] MEDS ORDERED: phenobarbital inj 130 MG in normal saline 100ml IV soln 100 ML IV ONE (20:55)
[2020-10-29] MEDS: levetiracetam 250mg tablet PO SCH (21:36)
[2020-10-29] MEDS: pregabalin 75mg capsule PO SCH (21:36)
[2020-10-29] MEDS: risperiDONE 0.5mg tablet PO SCH (21:39)
[2020-10-29] MEDS: topiramate 25mg tablet PO SCH (21:40)
[2020-10-29] MEDS: traZODone 50mg tablet PO SCH (21:42)
--- NOTE | 2020-10-30 06:32 | NUR ---
Received repot and Pt is in bed sleeping w/o distress at beginning of shift.
[2020-10-30] MEDS ORDERED: venlafaxine XR 37.5mg cap (Q24H) PO SCH (08:00)
[2020-10-30] MEDS ORDERED: thiamine 100mg tablet PO SCH (08:00)
[2020-10-30] MEDS ORDERED: folic acid 1mg tablet PO SCH (08:00)
[2020-10-30] MEDS: levetiracetam 250mg tablet PO SCH ×2 (08:23→18:25)
[2020-10-30] MEDS: risperiDONE 0.5mg tablet PO SCH ×2 (08:23→19:24)
[2020-10-30] MEDS: topiramate 25mg tablet PO SCH ×2 (08:23→19:25)
[2020-10-30] MEDS: pregabalin 75mg capsule PO SCH (08:24)
--- NOTE | 2020-10-30 11:27 | NUR ---
Pt awoke and ate breakfast and used bathroom. Pt took AM meds w/o issue. He is pleasant and cooperative and awaiting evaluation by [facility].
--- NOTE | 2020-10-30 11:57 | NUR ---
Pt seen by [facility] and not placed on a 5150 hold. Arrangements made for Pt to get a ride [facility] to [place] to go to Rehab, [facility]" program that Pt has been to before. Pt resting in bed and eating a snack.
[2020-10-30] MEDS ORDERED: LORazepam 2 mg/ml vial IV ONE (14:10)
--- NOTE | 2020-10-30 14:16 | NUR ---
PT FOUND ON THE GROUND AND WAS SEIZING. NOTIFIED, VIATLS AND CRASH CART BROUGHT TO BEDSIDE. PT MOUTH SUCTIONED AND VITAL MONITORING APPLIED. MARIO RIZO AT BEDSIDE TALKING WITH PT. PER MARIO MATA NO ATIVAN NEEDED AT THIS TIME.
--- NOTE | 2020-10-30 14:21 | NUR ---
PT HELPED BACK INTO BED BY MILA BENITEZ.
[2020-10-30] MEDS ORDERED: LORazepam 2 mg/ml vial ONE ×2 (14:32→14:54)
--- NOTE | 2020-10-30 14:39 | NUR ---
PT HAVING SEIZURE ACTIVITY MARIO MATA AT BEDSIDE, PER MARIO RIZO GIVE ATIVAN.
[2020-10-30] MEDS ORDERED: phenobarbital inj 260 MG in normal saline 100ml IV soln 98 ML IV STA (15:04)
[2020-10-30] MEDS ORDERED: pregabalin 75mg capsule PO SCH (17:27)
--- NOTE | 2020-10-30 17:36 | NUR ---
Pt to CT [address]
[2020-10-30] MEDS ORDERED: Levetiracetam-NS 500mg/100ml 100 ML IV ONE (17:45)
--- NOTE | 2020-10-30 18:27 | NUR ---
Received report and care from KRIST[facility]. Nurse reported that IV Keppra is currently infusing so PO Keppra was not administered.
[2020-10-30] MEDS ORDERED: LEVE500T PO (19:03)
[2020-10-30] MEDS: traZODone 50mg tablet PO SCH (19:24)
[2020-10-30] MEDS ORDERED: PREG300C PO (19:26)
[2020-10-30] MEDS ORDERED: VENL-191 PO (19:26)
[2020-10-30] MEDS ORDERED: TOPI25TA49 PO (19:26)
[2020-10-30] MEDS ORDERED: THIA50TA10 PO (19:26)
[2020-10-30] MEDS ORDERED: RISP1TAB98 PO (19:26)
[2020-10-30] MEDS ORDERED: levetiracetam inj 500 MG in normal saline 100ml IV soln 95 ML IV SCH ×4 (20:00)
[2020-10-30 20:27] VITALS: BP 129/93
== END 2020-10-30 20:42 | disposition home or self-care (01) ==
LOC: ER 12:02
DX: T65.92XA Toxic effect of unspecified substance, intentional self-harm, initial encounter (principal); G40.909 Epilepsy, unspecified, not intractable, without status epilepticus; F10.129 Alcohol abuse with intoxication, unspecified; G89.29 Other chronic pain; Z86.718 Personal history of other venous thrombosis and embolism; Z86.69 Personal history of other diseases of the nervous system and sense organs; Z90.89 Acquired absence of other organs; Z98.890 Other specified postprocedural states; Z72.89 Other problems related to lifestyle; Z56.0 Unemployment, unspecified; Z88.1 Allergy status to other antibiotic agents; Z88.8 Allergy status to other drugs, medicaments and biological substances; Z88.6 Allergy status to analgesic agent; Z79.899 Other long term (current) drug therapy; Y92.89 Other specified places as the place of occurrence of the external cause; Y90.0 Blood alcohol level of less than 20 mg/100 ml
CPT/HCPCS: 36415; 70450; 80053; 80305; 80320; 80329; 83605; 85025; 93005; 96365; 96366; 96372; 96375; 96376; 99285; J1953; J2060; J2560; J7030